=== PATIENT | male | born 1995 | race Caucasian/White ===

== ENCOUNTER 2018-11-30 12:46 | Emergency (ER) | payer OTHER ==
[2018-11-30] MEDS ORDERED: Sodium Chloride 0.9% 10 ML Syringe FLUSH PRN (12:53)
[2018-11-30] MEDS ORDERED: Sodium Chloride 0.9% 1,000 ML IV ONE (12:53)
[2018-11-30] MEDS ORDERED: Sodium Chloride 0.9% 2.5 ML Syringe FLUSH PRN (12:53)
[2018-11-30] MEDS ORDERED: Pantoprazole 40 MG Vial IVPUSH ONE (13:15)
[2018-11-30 13:29] LABS: CHLORIDE,CL 107 mmol/L (98-107); SODIUM,NA 143 mmol/L (136-148)
[2018-11-30] MEDS ORDERED: Water For Injection, Sterile 20 ML SDV INJECT SCH (13:30)
[2018-11-30] MEDS ORDERED: Iopamidol 755 MG/ML 500 ML Multipack Bottle IVPUSH STA (14:27)
--- NOTE | 2018-11-30 15:00 | CT ---
INDICATION: Abdominal pain TECHNIQUE: CT abdomen and pelvis acquired with [IV] contrast. 100 cc of IV contrast was used. COMPARISON: None available FINDINGS: Evaluation is somewhat limited due to patient motion. The visualized portions of the lung bases are clear. The liver, spleen, pancreas and adrenal glands are unremarkable. The gallbladder is nondistended. The kidneys enhance symmetrically without hydronephrosis. The bladder is minimally distended and unremarkable. There are no dilated loops of small bowel to suggest obstruction. The appendix is surgically absent.There is no intraperitoneal free air or fluid. The visualized osseous structures are unremarkable. IMPRESSION: Unremarkable contrast enhanced CT of the abdomen and pelvis. Please note that all CT scans at this facility use dose modulation, iterative reconstruction, and/or weight-based dosing when appropriate to reduce radiation dose to as low as reasonably achievable. Dictated by: Joy Ferguson MD @ 11/30/2018 14:59:46 (Electronically Signed)
[2018-11-30] MEDS ORDERED: Ondansetron 4 MG/2 ML SDV IVPUSH ONE (15:19)
--- NOTE | 2018-11-30 15:20 | EDM.PDOC ---
ED HPI GENERAL MEDICAL PROBLEM - General Chief Complaint: Abdominal Pain Stated Complaint: CHEST AND STOMACH PAIN Time Seen by Provider: 11/30/18 12:53 Source of Information: Reports: Patient History Limitations: Reports: No Limitations - History of Present Illness INITIAL COMMENTS - FREE TEXT/NARRATIVE: History of present illness: []Patient states he started having severe abdominal pain radiating up to his left chest today. 2 beers last night states he's been drinking more heavily this year than he has the past year . He has a history of stomach ulcers but was not aware that alcohol worsens symptoms. He denies vomiting blood, he is nauseated and states last week he had black stools. He denies passing any since. Review of systems: As per history of present illness and below otherwise all systems reviewed and negative. Past medical history: As per history of present illness and as reviewed below otherwise noncontributory. Surgical history: As per history of present illness and as reviewed below otherwise noncontributory. Social history: No reported history of drug or alcohol abuse. Family history: As per history of present illness and as reviewed below otherwise noncontributory. Physical exam: General: Well developed, well nourished in NAD HEENT: Atraumatic, normocephalic, pupils reactive, negative for conjunctival pallor or scleral icterus, mucous membranes moist, throat clear, neck supple, nontender, trachea midline. Lungs: Clear to auscultation, breath sounds equal bilaterally, chest nontender. Heart: S1S2, regular, negative for clicks, rubs, or JVD. Abdomen: NABS, Soft, nondistended, nontender. Negative for masses or hepatosplenomegaly. Negative for costovertebral tenderness. Pelvis: Stable nontender. Genitourinary: Deferred. Rectal: Deferred. Extremities: Atraumatic, negative for cords or calf pain. Neurovascular unremarkable. Neuro: Awake, alert, oriented. Cranial nerves II through XII unremarkable. Cerebellum unremarkable. Motor and sensory unremarkable throughout. Exam nonfocal. Skin:warm and dry Diagnostics: CBC, chemistry, lipase, H. pylori, habdomen and pelvis CT Therapeutics: Normal saline, Protonix and Zofran ED Course: Improved Impression: Acute gastritis Prescriptions: Zofran Plan: Take Prilosec twice a day for the next 2 weeks follow up with primary care doctor. Definitive disposition and diagnosis as appropriate pending reevaluation and review of above. Upper Abdomen Pain Score (Numeric/FACES): 10 - Related Data Allergies Allergy/AdvReac Type Severity Reaction Status Date / Time No Known Allergies Allergy Verified 11/30/18 12:52 Home Meds: Home Meds Ondansetron HCl [Zofran] 4 mg PO Q4HR #12 tablet 11/30/18 [Rx] Past Medical History - Past Health History Medical/Surgical History: Denies Medical/Surgical History - Past Surgical History GI Surgical History: Reports: Appendectomy Social & Family History - Family History Family Medical History: Noncontributory - Tobacco Use Smoking Status *Q: Current Every Day Smoker Years of Tobacco use: 4 Packs/Tins Daily: 1 - Recreational Drug Use Recreational Drug Use: No ED ROS GENERAL - Review of Systems Review Of Systems: ROS reveals no pertinent complaints other than HPI. ED EXAM, GI/ABD - Physical Exam Exam: See Below (History of present illness) Course - Vital Signs Last Recorded V/S: Last Vital Signs Temp 97.0 F 11/30/18 12:50 Pulse 86 11/30/18 15:40 Resp 22 H 11/30/18 12:50 BP 114/54 L 11/30/18 15:40 Pulse Ox 98 11/30/18 15:40 - Orders/Labs/Meds Orders: Active Orders 24 hr Category Date Time Status Sodium Chloride 0.9% [Saline Flush] Med 11/30/18 12:53 Active 10 ml FLUSH ASDIRECTED PRN Sodium Chloride 0.9% [Saline Flush] Med 11/30/18 12:53 Active 2.5 ml FLUSH ASDIRECTED PRN Water For Injection, Sterile [Sterile Water for Med 11/30/18 13:30 Active Injection] 40 ml INJECT STAT Saline Lock Insert [OM.PC] Stat Oth 11/30/18 12:53 Ordered Medication Orders Sodium Chloride (Saline Flush) 10 ml FLUSH ASDIRECTED PRN PRN Reason: Keep Vein Open Last Admin: 11/30/18 13:01 Dose: 10 ml Sodium Chloride (Saline Flush) 2.5 ml FLUSH ASDIRECTED PRN PRN Reason: Keep Vein Open Last Admin: 11/30/18 13:01 Dose: 2.5 ml Sterile Water (Sterile Water For Injection) 40 ml INJECT STAT APRIL Last Admin: 11/30/18 13:33 Dose: 40 ml Labs: Laboratory Tests 11/30/18 11/30/18 11/30/18 Range/Units 13:03 13:03 13:03 WBC 10.11 (4.0-11.0) K/uL RBC 4.98 (4.50-5.90) M/uL Hgb 14.6 (13.0-17.0) g/dL Hct 40.9 (38.0-50.0) % MCV 82.1 (80.0-98.0) fL MCH 29.3 (27.0-32.0) pg MCHC 35.7 (31.0-37.0) g/dL RDW Std Deviation 39.2 (28.0-62.0) fl RDW Coeff of Kyle 13 (11.0-15.0) % Plt Count 199 (150-400) K/uL MPV 9.00 (7.40-12.00) fL Neut % (Auto) 84.5 H (48.0-80.0) % Lymph % (Auto) 9.7 L (16.0-40.0) % Gila % (Auto) 5.2 (0.0-15.0) % Eos % (Auto) 0.3 (0.0-7.0) % Baso % (Auto) 0.3 (0.0-1.5) % Neut # (Auto) 8.5 H (1.4-5.7) K/uL Lymph # (Auto) 1.0 (0.6-2.4) K/uL Gila # (Auto) 0.5 (0.0-0.8) K/uL Eos # (Auto) 0.0 (0.0-0.7) K/uL Baso # (Auto) 0.0 (0.0-0.1) K/uL Nucleated RBC % 0.0 /100WBC Nucleated RBCs # 0 K/uL Sodium 143 (136-148) mmol/L Potassium 3.7 (3.5-5.1) mmol/L Chloride 107 (98-107) mmol/L Carbon Dioxide 26.8 (21.0-32.0) mmol/L BUN 15 (7.0-18.0) mg/dL Creatinine 0.8 (0.8-1.3) mg/dL Est Cr Clr Drug Dosing 145.86 mL/min Estimated GFR (MDRD) > 60.0 ml/min Glucose 92 (74-106) mg/dL Calcium 9.5 (8.5-10.1) mg/dL Total Bilirubin 0.8 (0.2-1.0) mg/dL AST 28 (15-37) IU/L ALT 26 (14-63) IU/L Alkaline Phosphatase 97 (46-116) U/L Total Protein 7.6 (6.4-8.2) g/dL Albumin 4.4 (3.4-5.0) g/dL Globulin 3.2 (2.6-4.0) g/dL Albumin/Globulin Ratio 1.4 (0.9-1.6) Lipase 72 L (73-393) U/L Urine Color Urine Appearance Urine pH (5.0-8.0) Ur Specific [place] (1.001-1.035) Urine Protein (NEGATIVE) mg/dL Urine Glucose (UA) (NEGATIVE) mg/dL Urine Ketones (NEGATIVE) mg/dL Urine Occult Blood (NEGATIVE) Urine Nitrite (NEGATIVE) Urine Bilirubin (NEGATIVE) Urine Urobilinogen (<2.0) EU/dL Ur Leukocyte Esterase (NEGATIVE) Urine RBC (0-2/HPF) Urine WBC (0-5/HPF) Ur Epithelial Cells (NONE-FEW) Urine Bacteria (NEGATIVE) Urine Mucus (NONE-MOD) H. pylori IgG Antibody NEGATIVE (NEG) 11/30/18 Range/Units 13:40 WBC (4.0-11.0) K/uL RBC (4.50-5.90) M/uL Hgb (13.0-17.0) g/dL Hct (38.0-50.0) % MCV (80.0-98.0) fL MCH (27.0-32.0) pg MCHC (31.0-37.0) g/dL RDW Std Deviation (28.0-62.0) fl RDW Coeff of Klye (11.0-15.0) % Plt Count (150-400) K/uL MPV (7.40-12.00) fL Neut % (Auto) (48.0-80.0) % Lymph % (Auto) (16.0-40.0) % Gila % (Auto) (0.0-15.0) % Eos % (Auto) (0.0-7.0) % Baso % (Auto) (0.0-1.5) % Neut # (Auto) (1.4-5.7) K/uL Lymph # (Auto) (0.6-2.4) K/uL Gila # (Auto) (0.0-0.8) K/uL Eos # (Auto) (0.0-0.7) K/uL Baso # (Auto) (0.0-0.1) K/uL Nucleated RBC % /100WBC Nucleated RBCs # K/uL Sodium (136-148) mmol/L Potassium (3.5-5.1) mmol/L Chloride (98-107) mmol/L Carbon Dioxide (21.0-32.0) mmol/L BUN (7.0-18.0) mg/dL Creatinine (0.8-1.3) mg/dL Est Cr Clr Drug Dosing mL/min Estimated GFR (MDRD) ml/min Glucose (74-106) mg/dL Calcium (8.5-10.1) mg/dL Total Bilirubin (0.2-1.0) mg/dL AST (15-37) IU/L ALT (14-63) IU/L Alkaline Phosphatase (46-116) U/L Total Protein (6.4-8.2) g/dL Albumin (3.4-5.0) g/dL Globulin (2.6-4.0) g/dL Albumin/Globulin Ratio (0.9-1.6) Lipase (73-393) U/L Urine Color YELLOW Urine Appearance CLEAR Urine pH 7.5 (5.0-8.0) Ur Specific [place] 1.015 (1.001-1.035) Urine Protein NEGATIVE (NEGATIVE) mg/dL Urine Glucose (UA) NEGATIVE (NEGATIVE) mg/dL Urine Ketones >=80 (NEGATIVE) mg/dL Urine Occult Blood NEGATIVE (NEGATIVE) Urine Nitrite NEGATIVE (NEGATIVE) Urine Bilirubin NEGATIVE (NEGATIVE) Urine Urobilinogen 0.2 (<2.0) EU/dL Ur Leukocyte Esterase NEGATIVE (NEGATIVE) Urine RBC NONE SEEN (0-2/HPF) Urine WBC 1-2 (0-5/HPF) Ur Epithelial Cells RARE (NONE-FEW) Urine Bacteria FEW (NEGATIVE) Urine Mucus MODERATE (NONE-MOD) H. pylori IgG Antibody (NEG) Meds: Medications Generic Name Dose Route Start Last Admin Trade Name Freq PRN Reason Stop Dose Admin Sodium Chloride 10 ml 11/30/18 12:53 11/30/18 13:01 Saline Flush FLUSH 10 ml ASDIRECTED PRN Administration Keep Vein Open Sodium Chloride 2.5 ml 11/30/18 12:53 11/30/18 13:01 Saline Flush FLUSH 2.5 ml ASDIRECTED PRN Administration Keep Vein Open Sterile Water 40 ml 11/30/18 13:30 11/30/18 13:33 Sterile Water For Injection INJECT 40 ml STAT APRIL Administration Discontinued Medications Generic Name Dose Route Start Last Admin Trade Name Freq PRN Reason Stop Dose Admin Sodium Chloride 1,000 mls @ 999 mls/hr 11/30/18 12:53 11/30/18 13:01 Normal Saline IV 11/30/18 13:53 999 mls/hr .Bolus ONE Administration Iopamidol 100 ml 11/30/18 14:27 11/30/18 14:28 Isovue Multipack-370 (76%) IVPUSH 11/30/18 14:28 100 ml ONETIME STA Administration Ondansetron HCl 4 mg 11/30/18 15:19 11/30/18 15:25 Zofran IVPUSH 11/30/18 15:20 4 mg ONETIME ONE Administration Pantoprazole Sodium 80 mg 11/30/18 13:15 11/30/18 13:33 Protonix Iv IVPUSH 11/30/18 13:16 80 mg .BOLUS ONE Administration Departure - Departure Time of Disposition: 15:16 Disposition: Home, Self-Care 01 Condition: Good Clinical Impression: Gastritis Qualifiers: Gastritis type: unspecified gastritis Chronicity: acute Gastritis bleeding: without bleeding Qualified Code(s): K29.00 - Acute gastritis without bleeding - Discharge Information *PRESCRIPTION DRUG MONITORING PROGRAM REVIEWED*: No *COPY OF PRESCRIPTION DRUG MONITORING REPORT IN PATIENT HILARIO: No Prescriptions: Ondansetron HCl [Zofran] 4 mg PO Q4HR #12 tablet Instructions: Gastritis, Adult, [id number] Forms: ED Department Discharge Additional Instructions: The following information is given to patients seen in the emergency department who are being discharged to home. This information is to outline your options for follow-up care. We provide all patients seen in our emergency department with a follow-up referral. The need for follow-up, as well as the timing and circumstances, are variable depending upon the specifics of your emergency department visit. If you don't have a primary care physician on staff, we will provide you with a referral. We always advise you to contact your personal physician following an emergency department visit to inform them of the circumstance of the visit and for follow-up with them and/or the need for any referrals to a consulting specialist. The emergency department will also refer you to a specialist when appropriate. This referral assures that you have the opportunity for follow-up care with a specialist. All of these measure are taken in an effort to provide you with optimal care, which includes your follow-up. Under all circumstances we always encourage you to contact your private physician who remains a resource for coordinating your care. When calling for follow-up care, please make the office aware that this follow-up is from your recent emergency room visit. If for any reason you are refused follow-up, please contact the [facility] Emergency Department at and asked to speak to the emergency department charge nurse. Do not drink any alcohol, ibuprofen or Aleve or aspirin. Take Prilosec twice a day for 2 weeks and follow-up with primary care. If any symptoms worsen or change. [facility] [address] [place] [id number] - My Orders Last 24 Hours: My Active Orders 11/30/18 12:53 Sodium Chloride 0.9% [Saline Flush] 10 ml FLUSH ASDIRECTED PRN Sodium Chloride 0.9% [Saline Flush] 2.5 ml FLUSH ASDIRECTED PRN Saline Lock Insert [OM.PC] Stat 11/30/18 13:30 Water For Injection, Sterile [Sterile Water for Injection] 40 ml INJECT STAT - Assessment/Plan Last 24 Hours: My Active Orders 11/30/18 12:53 Sodium Chloride 0.9% [Saline Flush] 10 ml FLUSH ASDIRECTED PRN Sodium Chloride 0.9% [Saline Flush] 2.5 ml FLUSH ASDIRECTED PRN Saline Lock Insert [OM.PC] Stat 11/30/18 13:30 Water For Injection, Sterile [Sterile Water for Injection] 40 ml INJECT STAT
== END 2018-11-30 15:40 | disposition home or self-care (01) ==
LOC: MW.ED 12:46
DX: K29.00 Acute gastritis without bleeding (principal); F17.210 Nicotine dependence, cigarettes, uncomplicated
CPT/HCPCS: 36415; 74177; 80053; 81001; 83690; 85025; 86677; 93005; 96361; 96374; 96375; 99284; C9113; J2405; J7040; Q9967; 99283

== ENCOUNTER 2019-02-11 09:36 | Day surgery (SDC) | payer OTHER ==
[~2019-02-11 09:36] MED LIST: Lactated Ringers 1,000 ML IV SCH; Sodium Chloride 0.9% 10 ML SDV IV PRN; Sodium Chloride 0.9% 10 ML Syringe FLUSH PRN; Sodium Chloride 0.9% 2.5 ML Syringe FLUSH PRN
[2019-02-11] MEDS ORDERED: Propofol 200 MG/20 ML SDV ONE ×2 (10:19→11:52)
[2019-02-11] MEDS ORDERED: Midazolam 1 MG/ML 2 ML SDV ONE (10:19)
[2019-02-11] MEDS ORDERED: Lidocaine 2% 5 ML SDV ONE (10:19)
[2019-02-11] MEDS ORDERED: fentaNYL 100 MCG/2 ML SDV ONE (10:19)
--- NOTE | 2019-02-11 11:40 | PCM.PREANE ---
Preanesthetic Assessment - Anesthesia/Transfusion/Family Hx Anesthesia History: Prior Anesthesia Without Reaction (high tolerance) Other Type of Anesthesia Reaction Comment: "when having wisdom teeth extracted the anesthesia caused anxiety" Transfusion History: No Prior Transfusion(s) - Review of Systems General: No Symptoms Pulmonary: No Symptoms Cardiovascular: No Symptoms Gastrointestinal: No Symptoms Neurological: No Symptoms - Physical Assessment O2 Sat by Pulse Oximetry: 98 Respiratory Rate: 14 Vital Signs: Last Vital Signs Temp 36.8 C 02/11/19 10:15 Pulse 53 L 02/11/19 10:15 Resp 14 02/11/19 10:15 BP 116/64 02/11/19 10:15 Pulse Ox 98 02/11/19 10:15 Height: 1.83 m Weight: 71.214 kg ASA Class: 2 Mental Status: Alert & Oriented x3 Airway Class: Mallampati = 1 Dentition: Reports: Normal Dentition Thyro-Mental Finger Breadths: 3 Mouth Opening Finger Breadths: 3 ROM/Head Extension: Full Lungs: Clear to Auscultation, Normal Respiratory Effort Cardiovascular: Regular Rate, Regular Rhythm - Allergies Allergies/Adverse Reactions: Allergies Allergy/AdvReac Type Severity Reaction Status Date / Time lactose Allergy Stomach Verified 02/06/19 14:15 Upset - Acknowledgements Anesthesia Type Planned: MAC Pt an Appropriate Candidate for the Planned Anesthesia: Yes Alternatives and Risks of Anesthesia Discussed w Pt/Guardian: Yes Pt/Guardian Understands and Agrees with Anesthesia Plan: Yes PreAnesthesia Questionnaire - Past Health History Medical/Surgical History: Denies Medical/Surgical History HEENT History: Reports: None Cardiovascular History: Reports: None Respiratory History: Reports: Asthma, Other (See Below) (allergic rhinitis) Other Respiratory History: states he rarely uses his inhaler Gastrointestinal History: Reports: Gastritis, GERD Genitourinary History: Reports: None Musculoskeletal History: Reports: Fracture, Osteoarthritis, Other (See Below) Other Musculoskeletal History: hx fx hand Neurological History: Reports: Migraines Psychiatric History: Reports: Anxiety, Depression Endocrine/Metabolic History: Reports: None Hematologic History: Reports: None Immunologic History: Reports: None Oncologic (Cancer) History: Reports: None Dermatologic History: Reports: None - Past Surgical History Head Surgeries/Procedures: Reports: None HEENT Surgical History: Reports: Oral Surgery Other HEENT Surgeries/Procedures: wisdom teeth extraction Cardiovascular Surgical History: Reports: None Respiratory Surgical History: Reports: None GI Surgical History: Reports: Appendectomy Male Surgical History: Reports: None Endocrine Surgical History: Reports: None Neurological Surgical History: Reports: None Musculoskeletal Surgical History: Reports: None Oncologic Surgical History: Reports: None Dermatological Surgical History: Reports: None - SUBSTANCE USE Smoking Status *Q: Current Every Day Smoker Tobacco Use Within Last Twelve Months: Cigarettes (for 4 years) Days Per Week of Alcohol Use: 0 (occasional etoh) Recreational Drug Use History: No - HOME MEDS Home Medications: Home Meds Albuterol Sulfate [Albuterol Sulfate Hfa] 1 - 2 puff INH ASDIRECTED PRN [History] Omeprazole 20 tab PO ASDIRECTED 02/06/19 [History] PARoxetine [Paxil] 10 mg PO DAILY 02/07/19 [History] - CURRENT (IN HOUSE) MEDS Current Meds: Current Medications Lactated Ringer's (Ringers, Lactated) 1,000 mls @ 125 mls/hr IV ASDIRECTED APRIL Last Admin: 02/11/19 10:06 Dose: 125 mls/hr Lactated Ringer's (Ringers, Lactated) 1,000 mls @ 125 mls/hr IV ASDIRECTED APRIL Sodium Chloride (Saline Flush) 10 ml FLUSH ASDIRECTED PRN PRN Reason: Keep Vein Open Sodium Chloride (Saline Flush) 2.5 ml FLUSH ASDIRECTED PRN PRN Reason: Keep Vein Open Sodium Chloride (Saline Flush) 10 ml FLUSH ASDIRECTED PRN PRN Reason: Keep Vein Open Sodium Chloride (Saline Flush) 2.5 ml FLUSH ASDIRECTED PRN PRN Reason: Keep Vein Open Sodium Chloride (Normal Saline) 10 ml IV ASDIRECTED PRN PRN Reason: IV Use Sodium Chloride (Saline Flush) 10 ml FLUSH ASDIRECTED PRN PRN Reason: Keep Vein Open Sodium Chloride (Saline Flush) 2.5 ml FLUSH ASDIRECTED PRN PRN Reason: Keep Vein Open Sodium Chloride (Normal Saline) 10 ml IV ASDIRECTED PRN PRN Reason: IV Use Discontinued Medications Fentanyl (Sublimaze) Confirm Administered Dose 100 mcg .ROUTE .STK-MED ONE Stop: 02/11/19 10:20 Lidocaine (Xylocaine-Mpf 2%) Confirm Administered Dose 5 ml .ROUTE .STK-MED ONE Stop: 02/11/19 10:20 Midazolam HCl (Versed 1 Mg/Ml) Confirm Administered Dose 2 mg .ROUTE .STK-MED ONE Stop: 02/11/19 10:20 Propofol (Diprivan 20 Ml) Confirm Administered Dose 200 mg .ROUTE .STK-MED ONE Stop: 02/11/19 10:20
[2019-02-11] MEDS ORDERED: Glycopyrrolate 0.2 MG/ML SDV ONE (12:02)
--- NOTE | 2019-02-11 12:10 | PCM.OPNOTE ---
- General Post-Op/Procedure Note Date of Surgery/Procedure: 02/11/19 Operative Procedure(s): diagnostic EGD and colonoscopy Findings: normal EGD and normal colon Pre Op Diagnosis: abdominal pain and chronic diarrhea Post-Op Diagnosis: normal EGD and normal colon Anesthesia Technique: [facility] [place] Surgeon: Dorothy Thornton Pathology: stomach biopsies EBL in mLs: 0 Condition: Good
--- NOTE | 2019-02-11 12:49 | PCM.POSTAN ---
POST ANESTHESIA ASSESSMENT - MENTAL STATUS Mental Status: Alert, Oriented - RESPIRATORY Respiratory Status: Respiratory Rate WNL, Airway Patent, O2 Saturation Stable - CARDIOVASCULAR CV Status: Pulse Rate WNL, Blood Pressure Stable - GASTROINTESTINAL GI Status: No Symptoms - POST OP HYDRATION Hydration Status: Adequate & Stable - OBSERVATIONS Free Text/Narrative:: The patient tolerated the procedure well. There were no apparent anesthetic complications at this time.
--- NOTE | 2019-02-11 13:09 | PCM48HPAN ---
Post Anesthesia Note - EVALUATION WITHIN 48HRS OF ANESTHETIC Vital Signs in Normal Range: Yes Patient Participated in Evaluation: Yes Respiratory Function Stable: Yes Airway Patent: Yes Cardiovascular Function Stable: Yes Hydration Status Stable: Yes Pain Control Satisfactory: Yes Nausea and Vomiting Control Satisfactory: Yes Mental Status Recovered: Yes Resp Rate: 16 - COMMENTS/OBSERVATIONS Free Text/Narrative:: The patient has no complications at this time. There were no apparent anesthetic complications at this time. Discharge to home per criteria.
--- NOTE | 2019-02-11 18:39 | OR ---
SURGEON: DOROTHY THORNTON MD DATE OF PROCEDURE: 02/11/2019 PREOPERATIVE DIAGNOSIS: Abdominal pain, chronic diarrhea. POSTOPERATIVE DIAGNOSIS: Abdominal pain, chronic diarrhea. PROCEDURE PERFORMED: Diagnostic esophagogastroduodenoscopy and colonoscopy. ENDOSCOPIST: Dorothy Thornton MD. ANESTHESIA: MAC. INSTRUMENT USED: Olympus endoscope and colonoscope. EXTENT OF EXAM: To the second portion of duodenum, to the cecum. PREPARATION: Good. LIMITATIONS: None. INDICATION FOR EXAMINATION: The patient is a 23-year-old male who presents with abdominal pain as well as chronic diarrhea. The patient and I discussed the need for diagnostic EGD and colonoscopy. I explained the procedure, expected perioperative course, and risks including bleeding, infection, or damage to surrounding structures including perforation. The patient verbalized understanding and wishes to proceed. PROCEDURE IN DETAIL: The patient is brought into the endoscopy suite and placed in a left lateral decubitus position. A time-out was completed verifying the patient's name, age, date of , allergies, and procedure to be performed. Monitored anesthesia care was induced and continuous oxygen was provided via nasal cannula throughout the procedure. A bite-block was placed in the patient's mouth. I attempted to place the scope into the patient's mouth, however, he became combative and pulled the scope out of his posterior oropharynx. The anesthesiologist gave some more sedation and the patient was then calmed down. He was placed in a beach chair position then to allow better access to his posterior oropharynx. Endoscope was then placed into his mouth and advanced under direct visualization without difficulty to the second portion of the duodenum. This appeared normal and a photograph was taken. The scope was straightened out and fully withdrawn while examining the color, texture, anatomy, and integrity of the mucosa of the upper GI tract. The duodenum was free of pathology. The scope was brought into the stomach and a photograph was taken of the Z-line as well as pylorus. Both appeared normal. There was no evidence of gross inflammation or ulceration within the stomach. Biopsies were taken of the gastric antrum, body, and fundus, and sent for histologic review and H. pylori testing. The scope was brought into the distal esophagus and a photograph was taken of the distal esophagus. This appeared normal. The esophageal mucosa was free of pathology. The scope was removed and this portion of the procedure terminated. A digital rectal exam was performed which was normal. A well lubricated colonoscope was inserted into the rectum and advanced under direct visualization to the level of the cecum. The cecum was identified by both visual and anatomic landmarks. A photograph was taken of the cecal cap as well as with the scope retroflexed within the cecum. Scope was then straightened out and fully withdrawn while examining the color, texture, anatomy, and integrity of the mucosa from the cecum to the anal canal. The findings were consistent with normal colonic mucosa. The scope was then brought into the rectum and retroflexed to allow visualization of the anal canal opening. This appeared normal and a photograph was taken. The scope was then straightened out and fully withdrawn. The cecum to anus time was 6 minutes. The patient tolerated the procedure well and was taken to PACU in stable condition. ENDOSCOPIC DIAGNOSIS: Normal esophagogastroduodenoscopy and colonoscopy. RECOMMENDATIONS: Follow up in clinic in 2 weeks. MARYCRUZ RAMIREZ /[id number]
== END 2019-02-11 13:10 | disposition home or self-care (01) ==
LOC: MW.SDS 09:36
PROVIDERS: ATTEND Surgery
DX: K59.09 Other constipation (principal); K31.89 Other diseases of stomach and duodenum; R10.12 Left upper quadrant pain; K92.1 Melena; K52.9 Noninfective gastroenteritis and colitis, unspecified; K21.9 Gastro-esophageal reflux disease without esophagitis; J45.909 Unspecified asthma, uncomplicated; F41.9 Anxiety disorder, unspecified; F17.210 Nicotine dependence, cigarettes, uncomplicated; Z87.19 Personal history of other diseases of the digestive system; Z79.899 Other long term (current) drug therapy; Z91.09 Other allergy status, other than to drugs and biological substances
CPT/HCPCS: 43239; 45378; 88305; 88312; J2001; J2250; J2704; J3010; J3490; J7120

== ENCOUNTER 2019-05-26 11:46 | Emergency (ER) | payer OTHER ==
[~2019-05-26 11:46] MED LIST changes: +Albuterol/Ipratropium 3.0-0.5 MG/3 ML Neb Soln NEB ONE; -Lactated Ringers 1,000 ML IV SCH; -Sodium Chloride 0.9% 10 ML SDV IV PRN; -Sodium Chloride 0.9% 10 ML Syringe FLUSH PRN; -Sodium Chloride 0.9% 2.5 ML Syringe FLUSH PRN
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
--- NOTE | 2019-05-26 13:30 | CR ---
INDICATION: Shortness of breath. Chest pain. COMPARISON: none TECHNIQUE: Two view chest. FINDINGS: The lungs are clear. There is no evidence pneumothorax. The heart, mediastinum and pulmonary vessels are of normal size. There is no evidence of pleural fluid. IMPRESSION: Negative chest. Dictated by Eamon Flood MD @ May 26 2019 1:28PM Signed by Dr. Eamon Flood @ May 26 2019 1:29PM
== END 2019-05-26 12:35 | disposition home or self-care (01) ==
LOC: MW.ED 11:46
DX: R06.02 Shortness of breath (principal); K21.9 Gastro-esophageal reflux disease without esophagitis; M19.90 Unspecified osteoarthritis, unspecified site; Z79.899 Other long term (current) drug therapy; Z98.890 Other specified postprocedural states
CPT/HCPCS: 71045; 71045-26; 94640; 99283; 99284-25; J7620-GY

== ENCOUNTER 2019-08-20 21:16 | Emergency (ER) | payer SELFPAY ==
[2019-08-20] MEDS ORDERED: Tetracaine HCl/PF 0.5% 4 ML Bottle EYEBOTH ONE (21:45)
--- NOTE | 2019-08-20 21:47 | EDM.PDOC ---
ED HPI GENERAL MEDICAL PROBLEM - General Chief Complaint: Eye Problems Stated Complaint: EYE PAIN Time Seen by Provider: 08/20/19 21:40 Source of Information: Reports: Patient History Limitations: Reports: No Limitations - History of Present Illness INITIAL COMMENTS - FREE TEXT/NARRATIVE: HISTORY AND PHYSICAL: History of present illness: Patient is a 24-year-old male presents to the ED today with concern of both of his eyes hurting. Patient states his left is worse than his right and he is having some blurry vision of his eyes. 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 Patient states he is unsure if something got into his eye but this is when he started noticing the symptoms. Patient states he does not wear contacts or glasses. Patient denies any other symptoms or concerns. Patient denies fever, chills, chest pain, shortness of breath, or cough. Denies headache, neck stiff ness, change in vision, syncope, or near syncope. Denies nausea, vomiting, abdominal pain, diarrhea, constipation, or dysuria. Has not noted any blood in urine or stool. Patient has been eating and drinking appropriately. Review of systems: As per history of present illness and below otherwise all systems reviewed and negative. Past medical history: As per history of present illness and as reviewed below otherwise noncontributory. Surgical history: As per history of present illness and as reviewed below otherwise noncontributory. Social history: See social history for further information Family history: As per history of present illness and as reviewed below otherwise noncontributory. Physical exam: General: Patient is alert, oriented, and in no acute distress. Patient sitting comfortably on exam table. HEENT: Atraumatic, normocephalic, pupils equal and reactive bilaterally, negative for conjunctival pallor or scleral icterus, mucous membranes moist, TMs normal bilaterally, throat clear, neck supple, nontender, trachea midline. No drooling or trismus noted. No meningeal signs. No hot potato voice noted. Visual acuity is intact. EOMs intact. Fluroscene eye stain shows no corneal abrasions, lids were everted without foreign body. Negative erythema of the eyes. No haziness to the cornea bilaterally. Lungs: Clear to auscultation, breath sounds equal bilaterally, chest nontender. Heart: S1S2, regular rate and rhythm without overt murmur Abdomen: Soft, nondistended, nontender. Negative for masses or hepatosplenomegaly. Negative for costovertebral tenderness. Pelvis: Stable nontender. Genitourinary: Deferred. Rectal: Deferred. Skin: Intact, warm, dry. No lesions or rashes noted. Extremities: Atraumatic, negative for cords or calf pain. Neurovascular unremarkable. Neuro: Awake, alert, oriented. Cranial nerves II through XII unremarkable. Cerebellum unremarkable. Motor and sensory unremarkable throughout. Exam nonfocal. Notes: Dr. Clarke verbally involved in patient care. Discussed the importance for follow-up with the flight dynamicist. Voices understanding and is agreeable to plan of care. Denies any further questions or concerns at this time. Diagnostics: Fluorescein wolf lamp Therapeutics: Tetracaine ophthalmic Prescription: Erythromycin ophthalmic Impression: Bilateral eye pain Plan: 1. Apply medication as prescribed. You can also alternate ibuprofen and Tylenol as directed for pain and discomfort. 2. Follow up with the flight dynamicist as discussed. The number has been provided above for you to call and set up an appointment. 3. Return to the ED as needed and as discussed. Definitive disposition and diagnosis as appropriate pending reevaluation and review of above. bilateral eyes Pain Score (Numeric/FACES): 10 - Related Data Allergies Allergy/AdvReac Type Severity Reaction Status Date / Time lactose Allergy Stomach Verified 08/20/19 21:45 Upset Home Meds: Home Meds . [No Known Home Meds] 05/26/19 [History] Past Medical History - Past Health History Medical/Surgical History: Denies Medical/Surgical History HEENT History: Reports: None Cardiovascular History: Reports: None Respiratory History: Reports: Asthma, Other (See Below) Other Respiratory History: states he rarely uses his inhaler Gastrointestinal History: Reports: Gastritis, GERD Genitourinary History: Reports: None Musculoskeletal History: Reports: Fracture, Osteoarthritis, Other (See Below) Other Musculoskeletal History: hx fx hand Neurological History: Reports: Migraines Psychiatric History: Reports: Anxiety, Depression Endocrine/Metabolic History: Reports: None Hematologic History: Reports: None Immunologic History: Reports: None Oncologic (Cancer) History: Reports: None Dermatologic History: Reports: None - Infectious Disease History Infectious Disease History: Reports: Chicken Pox - Past Surgical History Head Surgeries/Procedures: Reports: None HEENT Surgical History: Reports: Oral Surgery Other HEENT Surgeries/Procedures: wisdom teeth extraction Cardiovascular Surgical History: Reports: None Respiratory Surgical History: Reports: None GI Surgical History: Reports: Appendectomy Male Surgical History: Reports: None Endocrine Surgical History: Reports: None Neurological Surgical History: Reports: None Musculoskeletal Surgical History: Reports: None Oncologic Surgical History: Reports: None Dermatological Surgical History: Reports: None Social & Family History - Family History Family Medical History: Noncontributory - Caffeine Use Caffeine Use: Reports: None ED ROS GENERAL - Review of Systems Review Of Systems: ROS reveals no pertinent complaints other than HPI. ED EXAM GENERAL W FULL EYE - Physical Exam Exam: See Below (See dictation) Course - Vital Signs Last Recorded V/S: Last Vital Signs Temp 97.6 F 08/20/19 21:32 Pulse 57 L 08/20/19 21:32 Resp 16 08/20/19 21:32 BP 126/71 08/20/19 21:32 Pulse Ox 97 08/20/19 21:32 - Orders/Labs/Meds Meds: Medications Discontinued Medications Generic Name Dose Route Start Last Admin Trade Name Jamal PRN Reason Stop Dose Admin Tetracaine HCl 1 ml 08/20/19 21:45 Tetracaine 0.5% Steri-Unit Laura EYEBOTH 08/20/19 21:46 ASDIRECTED ONE Departure - Departure Time of Disposition: 22:08 Disposition: Home, Self-Care 01 Clinical Impression: Eye pain Qualifiers: Laterality: bilateral Qualified Code(s): H57.13 - Ocular pain, bilateral - Discharge Information Referrals: PCP,None [Primary Care Provider] - Forms: ED Department Discharge Additional Instructions: The following information is given to patients seen in the emergency department who are being discharged to home. This information is to outline your options for follow-up care. We provide all patients seen in our emergency department with a follow-up referral. The need for follow-up, as well as the timing and circumstances, are variable depending upon the specifics of your emergency department visit. If you don't have a primary care physician on staff, we will provide you with a referral. We always advise you to contact your personal physician following an emergency department visit to inform them of the circumstance of the visit and for follow-up with them and/or the need for any referrals to a consulting specialist. The emergency department will also refer you to a specialist when appropriate. This referral assures that you have the opportunity for follow-up care with a specialist. All of these measure are taken in an effort to provide you with optimal care, which includes your follow-up. Under all circumstances we always encourage you to contact your private physician who remains a resource for coordinating your care. When calling for follow-up care, please make the office aware that this follow-up is from your recent emergency room visit. If for any reason you are refused follow-up, please contact the [facility] Emergency Department at and asked to speak to the emergency department charge nurse. [facility] [address] [place] [id number] [facility], Ophthalmology [address] [place] [address] 1. Apply medication as prescribed. You can also alternate ibuprofen and Tylenol as directed for pain and discomfort. 2. Follow up with the flight dynamicist as discussed. The number has been provided above for you to call and set up an appointment. 3. Return to the ED as needed and as discussed.
== END 2019-08-20 22:30 | disposition home or self-care (01) ==
LOC: MW.ED 21:16
DX: H57.13 Ocular pain, bilateral (principal); J45.909 Unspecified asthma, uncomplicated; Z91.011 Allergy to milk products
CPT/HCPCS: 99283

== ENCOUNTER 2019-09-24 20:48 | Emergency (ER) | payer BC ==
[2019-09-24] MEDS ORDERED: Sodium Chloride 0.9% 10 ML Syringe FLUSH PRN (21:15)
[2019-09-24] MEDS ORDERED: Ketorolac 30 MG/ML SDV IVPUSH ONE (21:15)
[2019-09-24] MEDS ORDERED: Pantoprazole 80 MG in Sodium Chloride 0.9% 20 ML IVPUSH ONE (21:15)
[2019-09-24] MEDS ORDERED: Sodium Chloride 0.9% 1,000 ML IV ONE (21:15)
[2019-09-24] MEDS ORDERED: Ondansetron 4 MG/2 ML SDV IVPUSH ONE (21:15)
[2019-09-24] MEDS ORDERED: Sodium Chloride 0.9% 2.5 ML Syringe FLUSH PRN (21:15)
--- NOTE | 2019-09-24 21:18 | EDM.PDOC ---
ED HPI GENERAL MEDICAL PROBLEM - General Stated Complaint: VOMITTING AND DIZZY Time Seen by Provider: 09/24/19 21:08 - History of Present Illness INITIAL COMMENTS - FREE TEXT/NARRATIVE: HISTORY AND PHYSICAL: History of present illness: The patient is a 24-year-old male with no past medical history who presents with a one-month history of lightheadedness and generalized weakness intermittent vomiting intermittent diarrhea coughing malaise and bodyaches. The patient says that today he has been having more vomiting and that he always has loose stools and they have not been more frequent recently but have been in the past. Is not documented a fever but has had a cough. He is a smoker but denies drug use. He says he has some upper abdominal pain that started after the vomiting but it is not severe or consistent. He says he has diffuse body aches and slight frontal headache. He did not get his influenza shot this year and has not seen a provider over the last one month for these multiple symptoms. He is not falling passing out or blacking out and has no sore throat or runny nose or sinus congestion. The patient told triage that he felt dizzy but when I clarify it is more lightheadedness but he has not passed out or blacked out. Review of systems: As per history of present illness and below otherwise all systems reviewed and negative. Past medical history: As per history of present illness and as reviewed below otherwise noncontributory. Surgical history: As per history of present illness and as reviewed below otherwise noncontributory. Social history: No reported history of drug or alcohol abuse. Family history: As per history of present illness and as reviewed below otherwise noncontributory. Physical exam: General: Well-developed well-nourished man who is nontoxic and vital signs are noted by me HEENT: Atraumatic, normocephalic, pupils reactive, negative for conjunctival pallor or scleral icterus, mucous membranes moist, throat clear, neck supple, nontender, trachea midline. No cervical adenopathy or nuchal rigidity Lungs: Clear to auscultation, breath sounds equal bilaterally, chest nontender. Heart: S1S2, regular rate and rhythm no overt murmurs Abdomen: Soft, nondistended, nontender. Negative for masses or hepatosplenomegaly. Negative for costovertebral tenderness. Pelvis: Stable nontender. Genitourinary: Deferred. Rectal: Deferred. Extremities: Atraumatic, negative for cords or calf pain. Neurovascular unremarkable. Neuro: Awake, alert, oriented. Cranial nerves II through XII unremarkable. Cerebellum unremarkable. Motor and sensory unremarkable throughout. Exam nonfocal. Diagnostics: CBC CMP UA with reflex magnesium level influenza chest x-ray Therapeutics: IV fluids Zofran Protonix Toradol Impression: Viral illness/URI with body aches and malaise subacute, vomiting stable, lightheadedness subacute Definitive disposition and diagnosis as appropriate pending reevaluation and review of above. Head Pain Score (Numeric/FACES): 7 - Related Data Allergies Allergy/AdvReac Type Severity Reaction Status Date / Time lactose Allergy Stomach Verified 09/24/19 21:17 Upset Home Meds: Home Meds . [No Known Home Meds] 05/26/19 [History] Past Medical History - Past Health History Medical/Surgical History: Denies Medical/Surgical History HEENT History: Reports: None Cardiovascular History: Reports: None Respiratory History: Reports: Asthma, Other (See Below) Other Respiratory History: states he rarely uses his inhaler Gastrointestinal History: Reports: Gastritis, GERD Genitourinary History: Reports: None Musculoskeletal History: Reports: Fracture, Osteoarthritis, Other (See Below) Other Musculoskeletal History: hx fx hand Neurological History: Reports: Migraines Psychiatric History: Reports: Anxiety, Depression Endocrine/Metabolic History: Reports: None Hematologic History: Reports: None Immunologic History: Reports: None Oncologic (Cancer) History: Reports: None Dermatologic History: Reports: None - Infectious Disease History Infectious Disease History: Reports: Chicken Pox - Past Surgical History Head Surgeries/Procedures: Reports: None HEENT Surgical History: Reports: Oral Surgery Other HEENT Surgeries/Procedures: wisdom teeth extraction Cardiovascular Surgical History: Reports: None Respiratory Surgical History: Reports: None GI Surgical History: Reports: Appendectomy Male Surgical History: Reports: None Endocrine Surgical History: Reports: None Neurological Surgical History: Reports: None Musculoskeletal Surgical History: Reports: None Oncologic Surgical History: Reports: None Dermatological Surgical History: Reports: None Social & Family History - Family History Family Medical History: Noncontributory - Caffeine Use Caffeine Use: Reports: None ED ROS GENERAL - Review of Systems Review Of Systems: Comprehensive ROS is negative, except as noted in HPI. ED EXAM, GENERAL - Physical Exam Exam: See Below (See dictation) Course - Vital Signs Last Recorded V/S: Last Vital Signs Temp 36.3 C 09/24/19 21:17 Pulse 58 L 09/24/19 21:17 Resp 16 09/24/19 21:17 BP 112/75 09/24/19 21:17 Pulse Ox 99 09/24/19 21:17 - Orders/Labs/Meds Orders: Active Orders 24 hr Category Date Time Status Sodium Chloride 0.9% [Saline Flush] Med 09/24/19 21:15 Active 10 ml FLUSH ASDIRECTED PRN Sodium Chloride 0.9% [Saline Flush] Med 09/24/19 21:15 Active 2.5 ml FLUSH ASDIRECTED PRN Saline Lock Insert [OM.PC] Stat Oth 09/24/19 21:14 Ordered Medication Orders Sodium Chloride (Saline Flush) 10 ml FLUSH ASDIRECTED PRN PRN Reason: Keep Vein Open Sodium Chloride (Saline Flush) 2.5 ml FLUSH ASDIRECTED PRN PRN Reason: Keep Vein Open Labs: Laboratory Tests 09/24/19 09/24/19 09/24/19 Range/Units 21:23 21:39 21:39 WBC 5.21 (4.0-11.0) K/uL RBC 4.66 (4.50-5.90) M/uL Hgb 13.6 (13.0-17.0) g/dL Hct 38.0 (38.0-50.0) % MCV 81.5 (80.0-98.0) fL MCH 29.2 (27.0-32.0) pg MCHC 35.8 (31.0-37.0) g/dL RDW Std Deviation 37.4 (28.0-62.0) fl RDW Coeff of Kyle 13 (11.0-15.0) % Plt Count 183 (150-400) K/uL MPV 9.20 (7.40-12.00) fL Neut % (Auto) 40.5 L (48.0-80.0) % Lymph % (Auto) 46.6 H (16.0-40.0) % [place] % (Auto) 10.2 (0.0-15.0) % Eos % (Auto) 2.1 (0.0-7.0) % Baso % (Auto) 0.6 (0.0-1.5) % Neut # (Auto) 2.1 (1.4-5.7) K/uL Lymph # (Auto) 2.4 (0.6-2.4) K/uL [place] # (Auto) 0.5 (0.0-0.8) K/uL Eos # (Auto) 0.1 (0.0-0.7) K/uL Baso # (Auto) 0.0 (0.0-0.1) K/uL Nucleated RBC % 0.0 /100WBC Nucleated RBCs # 0 K/uL Sodium 142 (136-148) mmol/L Potassium 3.7 (3.5-5.1) mmol/L Chloride 105 (98-107) mmol/L Carbon Dioxide 29.5 (21.0-32.0) mmol/L BUN 13 (7.0-18.0) mg/dL Creatinine 0.8 (0.8-1.3) mg/dL Est Cr Clr Drug Dosing 152.34 mL/min Estimated GFR (MDRD) > 60.0 ml/min Glucose 89 (74-106) mg/dL Calcium 9.4 (8.5-10.1) mg/dL Magnesium 2.1 (1.8-2.4) mg/dL Total Bilirubin 0.4 (0.2-1.0) mg/dL AST 21 (15-37) IU/L ALT 33 (14-63) IU/L Alkaline Phosphatase 69 (46-116) U/L Total Protein 7.3 (6.4-8.2) g/dL Albumin 4.3 (3.4-5.0) g/dL Globulin 3.0 (2.6-4.0) g/dL Albumin/Globulin Ratio 1.4 (0.9-1.6) Urine Color YELLOW Urine Appearance CLEAR Urine pH 6.5 (5.0-8.0) Ur Specific [place] 1.015 (1.001-1.035) Urine Protein NEGATIVE (NEGATIVE) mg/dL Urine Glucose (UA) NEGATIVE (NEGATIVE) mg/dL Urine Ketones NEGATIVE (NEGATIVE) mg/dL Urine Occult Blood NEGATIVE (NEGATIVE) Urine Nitrite NEGATIVE (NEGATIVE) Urine Bilirubin NEGATIVE (NEGATIVE) Urine Urobilinogen 0.2 (<2.0) EU/dL Ur Leukocyte Esterase NEGATIVE (NEGATIVE) Meds: Medications Generic Name Dose Route Start Last Admin Trade Name Jamal PRN Reason Stop Dose Admin Sodium Chloride 10 ml 09/24/19 21:15 Saline Flush FLUSH ASDIRECTED PRN Keep Vein Open Sodium Chloride 2.5 ml 09/24/19 21:15 Saline Flush FLUSH ASDIRECTED PRN Keep Vein Open Discontinued Medications Generic Name Dose Route Start Last Admin Trade Name Jamal PRN Reason Stop Dose Admin Pantoprazole Sodium 80 mg/ 20 mls @ 420 mls/hr 09/24/19 21:15 09/24/19 21:38 Sodium Chloride IVPUSH 09/24/19 21:17 420 mls/hr ONETIME ONE Administration Sodium Chloride 1,000 mls @ 999 mls/hr 09/24/19 21:15 09/24/19 21:38 Normal Saline IV 09/24/19 22:15 999 mls/hr STAT ONE Administration Ketorolac Tromethamine 30 mg 09/24/19 21:15 09/24/19 21:46 Toradol IVPUSH 09/24/19 21:16 30 mg ONETIME ONE Administration Ondansetron HCl 4 mg 09/24/19 21:15 09/24/19 21:43 Zofran IVPUSH 09/24/19 21:16 4 mg ONETIME ONE Administration Departure - Departure Time of Disposition: 22:31 Disposition: Home, Self-Care 01 Condition: Good Clinical Impression: Generalized body aches, Viral illness, Lightheadedness Vomiting Qualifiers: Vomiting type: unspecified Vomiting Intractability: non-intractable Nausea presence: with nausea Qualified Code(s): R11.2 - Nausea with vomiting, unspecified - Discharge Information Referrals: PCP,None [Primary Care Provider] - Additional Instructions: The following information is given to patients seen in the emergency department who are being discharged to home. This information is to outline your options for follow-up care. We provide all patients seen in our emergency department with a follow-up referral. The need for follow-up, as well as the timing and circumstances, are variable depending upon the specifics of your emergency department visit. If you don't have a primary care physician on staff, we will provide you with a referral. We always advise you to contact your personal physician following an emergency department visit to inform them of the circumstance of the visit and for follow-up with them and/or the need for any referrals to a consulting specialist. The emergency department will also refer you to a specialist when appropriate. This referral assures that you have the opportunity for followup care with a specialist. All of these measure are taken in an effort to provide you with optimal care, which includes your followup. Under all circumstances we always encourage you to contact your private physician who remains a resource for coordinating your care. When calling for followup care, please make the office aware that this follow-up is from your recent emergency room visit. If for any reason you are refused follow-up, please contact the [facility] emergency department at and ask to speak to the emergency department charge nurse. [facility] Primary care- Internal Medicine and Family [facility] [address] Please connect with one of our providers in the clinic for reevaluation and further care of the symptoms as they've been ongoing for the last one month. Her testing results here are within normal limits that you have been given some Zofran from [facility] for any nausea or vomiting. Please push hydration avoid caffeinated products and try to reduce and/or quit smoking. Return to ER as needed as discussed - My Orders Last 24 Hours: My Active Orders 09/24/19 21:14 Saline Lock Insert [OM.PC] Stat 09/24/19 21:15 Sodium Chloride 0.9% [Saline Flush] 10 ml FLUSH ASDIRECTED PRN Sodium Chloride 0.9% [Saline Flush] 2.5 ml FLUSH ASDIRECTED PRN - Assessment/Plan Last 24 Hours: My Active Orders 09/24/19 21:14 Saline Lock Insert [OM.PC] Stat 09/24/19 21:15 Sodium Chloride 0.9% [Saline Flush] 10 ml FLUSH ASDIRECTED PRN Sodium Chloride 0.9% [Saline Flush] 2.5 ml FLUSH ASDIRECTED PRN
--- NOTE | 2019-09-24 22:11 | CR ---
INDICATION: cough, dizzy, weakness TECHNIQUE: Chest 2 views. COMPARISON: 05/26/19 FINDINGS: Cardiovascular and mediastinum: Heart size and vasculature are normal in caliber and appearance. Mediastinum is within normal limits. Lungs and pleural spaces: Lungs are clear. No sign of infiltrate or mass. No sign of pleural effusion. No pneumothorax. Bones and soft tissues: No significant findings. IMPRESSION: Unremarkable chest. Dictated by: Blake Rosario MD @ 09/24/2019 22:09:52 (Electronically Signed)
[2019-09-24 22:28] LABS: BLOOD UREA NITROGEN,BUN 13 mg/dL (7.0-18.0); CARBON DIOXIDE,CO2 29.5 mmol/L (21.0-32.0); CHLORIDE,CL 105 mmol/L (98-107); GLUCOSE RANDOM 89 mg/dL (74-106); POTASSIUM,K 3.7 mmol/L (3.5-5.1); SODIUM,NA 142 mmol/L (136-148)
== END 2019-09-24 22:54 | disposition home or self-care (01) ==
LOC: MW.ED 20:48
DX: R42 Dizziness and giddiness (principal); R53.81 Other malaise; R11.2 Nausea with vomiting, unspecified; B34.9 Viral infection, unspecified; R52 Pain, unspecified; Z91.011 Allergy to milk products
CPT/HCPCS: 71046; 80053; 81003; 83735; 85025; 87804; 96374; 96375; 99285; C9113; J1885; J2405; J7030

== ENCOUNTER 2020-03-12 21:26 | Emergency (ER) | payer SELFPAY ==
[2020-03-12] MEDS ORDERED: Acetaminophen 500 MG Tab PO ONE (22:01)
[2020-03-12] MEDS ORDERED: Ibuprofen 400 MG Tab PO ONE (22:01)
[2020-03-12] MEDS ORDERED: Sodium Chloride 0.9% 2.5 ML Syringe FLUSH PRN (22:02)
[2020-03-12] MEDS ORDERED: Sodium Chloride 0.9% 10 ML SDV IV PRN (22:02)
[2020-03-12] MEDS ORDERED: Sodium Chloride 0.9% 10 ML Syringe FLUSH PRN (22:02)
[2020-03-12] MEDS ORDERED: Alum Hydrox/Mag Hydrox/Simeth 15 ML, Lidocaine 2% 5 ML PO ONE ×2 (22:03)
--- NOTE | 2020-03-12 22:58 | EDM.PDOC ---
ED HPI GENERAL MEDICAL PROBLEM - General Chief Complaint: Abdominal Pain Stated Complaint: SHARP PAIN IN CHEST, NAUSEA Time Seen by Provider: 03/12/20 21:27 Source of Information: Reports: Patient History Limitations: Reports: No Limitations - History of Present Illness INITIAL COMMENTS - FREE TEXT/NARRATIVE: This patient is a 24-year-old male with a past medical history of gastritis, asthma presenting with abdominal pain and headache. He reports left upper quadrant abdominal pain present for the past several months. This pain is intermittent and radiates through to the left flank. It is worse with movement and relieved with rest. Describes it as "pulling". No self treatment prior to arrival. Patient also complains of 2 to 3 weeks of a new headache, bilateral and retro- orbital in nature. Intermittently self treating with acetaminophen and ibuprofen without much relief. Nothing makes it better or worse. Denies any photophobia or phonophobia or neck stiffness. Denies visual disturbance, difficulty swallowing, dysarthria, facial or extremity numbness or weakness, gait instability, recent head trauma. abdominal pain Pain Score (Numeric/FACES): 6 - Related Data Allergies Allergy/AdvReac Type Severity Reaction Status Date / Time lactose Allergy Stomach Verified 09/24/19 21:17 Upset Home Meds: Home Meds . [No Known Home Meds] 05/26/19 [History] Past Medical History - Past Health History Medical/Surgical History: Denies Medical/Surgical History HEENT History: Reports: None Cardiovascular History: Reports: None Respiratory History: Reports: Asthma, Other (See Below) Other Respiratory History: states he rarely uses his inhaler Gastrointestinal History: Reports: Gastritis, GERD Genitourinary History: Reports: None Musculoskeletal History: Reports: Fracture, Osteoarthritis, Other (See Below) Other Musculoskeletal History: hx fx hand Neurological History: Reports: Migraines Psychiatric History: Reports: Anxiety, Depression Endocrine/Metabolic History: Reports: None Insulin Pump Model and Inverted Block Operator: None Hematologic History: Reports: None Immunologic History: Reports: None Oncologic (Cancer) History: Reports: None Dermatologic History: Reports: None - Infectious Disease History Infectious Disease History: Reports: None - Past Surgical History Head Surgeries/Procedures: Reports: None HEENT Surgical History: Reports: Oral Surgery Other HEENT Surgeries/Procedures: wisdom teeth extraction Cardiovascular Surgical History: Reports: None Respiratory Surgical History: Reports: None GI Surgical History: Reports: Appendectomy Male Surgical History: Reports: None Endocrine Surgical History: Reports: None Neurological Surgical History: Reports: None Musculoskeletal Surgical History: Reports: None Oncologic Surgical History: Reports: None Dermatological Surgical History: Reports: None Social & Family History - Family History Family Medical History: Noncontributory - Tobacco Use Smoking Status *Q: Current Every Day Smoker Years of Tobacco use: 4 Packs/Tins Daily: 0.5 - Caffeine Use Caffeine Use: Reports: Soda - Recreational Drug Use Recreational Drug Use: No ED ROS GENERAL - Review of Systems Review Of Systems: See Below Constitutional: Denies: Fever, Chills HEENT: Denies: Eye Pain, Hearing Loss, Vision Change Respiratory: Denies: Shortness of Breath, Cough Cardiovascular: Denies: Chest Pain, Edema, Lightheadedness, Palpitations, Syncope GI/Abdominal: Reports: Abdominal Pain. Denies: Black Stool, Bloody Stool, Constipation, Diarrhea, Difficulty Swallowing, Distension, Melena, Nausea, Vomiting : Denies: Discharge, Dysuria, Flank Pain Musculoskeletal: Denies: Neck Pain, Back Pain Skin: Denies: Rash Neurological: Reports: Headache. Denies: Confusion, Dizziness, Numbness, Paresthesia, Seizure, Syncope, Tingling, Trouble Speaking, Difficulty Walking, Weakness, Change in Speech, Gait Disturbance Psychiatric: Reports: No Symptoms Hematologic/Lymphatic: Reports: No Symptoms Immunologic: Reports: No Symptoms ED EXAM, GI/ABD - Physical Exam Exam: See Below Text/Narrative:: Vital signs reviewed. Nursing notes reviewed. Constitutional: Awake, alert, non-distressed Head: Normocephalic, atraumatic Eyes: EOMI, conjunctiva normal, no discharge, no scleral icterus Ears, Nose, Throat: External ears and ears normal, moist oral mucosa Cardiovascular: 2+ radial pulse, capillary refill less than 2 seconds Pulmonary: normal work of breathing, no accessory muscle use Abdomen/GI: Soft, mild tenderness to palpation in the left upper quadrant, nondistended, no guarding or rigidity, no masses Musculoskeletal: No deformities Integumentary: Appropriate color for ethnicity, warm, dry, no pallor or jaundice , no rash Neurologic: Awake, alert, and oriented x3. Cranial nerves II through XII intact. No facial droop or dysarthria. No temporal artery tenderness. Supple neck with normal range of motion. No pronator drift. Normal finger-nose- finger and [id number]. No dysdiadochokinesia. 5/5 strength in all extremities. Sensation intact to light touch x4. Negative Romberg. Normal gait. Able to sit, stand, and ambulate without assistance. Psychiatric: Appropriate mood and affect, normal thought process Eyes: Bilateral: Normal Appearance, EOMI Nose: Normal Inspection Throat/Mouth: Normal Inspection Neck: Supple, Full Range of Motion. No: Limited Range of Motion Neurological: Alert, Oriented, CN II-XII Intact, Normal Cognition, Normal Gait, No Motor/Sensory Deficits, Other Psychiatric: Normal Affect, Normal Mood EKG INTERPRETATION EKG Date: 03/13/20 Time: 00:04 Rhythm: Other (Sinus bradycardia) Rate (Beats/Min): 57 Sutherland: Normal P-Wave: Present QRS: Normal ST-T: Normal QT: Normal Comparison: NA - No Prior EKG Course - Vital Signs Text/Narrative:: 24-year-old male presenting with left upper quadrant abdominal pain and headache , both of been present for several weeks to months. On arrival patient is hemodynamically stable, afebrile, well-appearing. Differential diagnosis included but was not limited to splenomegaly, splenic infarction, gastritis, UTI, pyelonephritis, nonspecific abdominal pain, benign headache, tension headache, migraine, intracranial malignancy, intracranial hemorrhage, etc. IV access was established and labs were sent. CBC is unremarkable. Electrolytes and renal function are normal. LFTs and lipase are also within normal limits. Urinalysis is bland, no evidence of infection. Comprehensive neurologic examination revealed no abnormalities. We did obtain a noncontrast head CT, with no acute intracranial findings to explain the patient's headache. We also obtained a CT scan of the abdomen/pelvis, which was also unremarkable. Patient was given p.o. acetaminophen along with a GI cocktail, with partial relief of his pain. While the work-up was in progress, the patient began to complain of left-sided chest discomfort. He states "I feel like I am having anxiety attack". This only started while he was here in the emergency department he has not experienced this in the past. Low suspicion for acute coronary syndrome, but we did obtain a twelve-lead EKG which shows no acute ischemia. Additionally, that patient has no historical risk factors for acute coronary syndrome such as hypertension, hyperlipidemia, diabetes, obesity, etc. He is resting comfortably and is not tachycardic or hypertensive. We initiated a broad work-up for the patient's multitude of symptoms, with no acute findings identified. There is no evidence of an acute emergency medical condition that would require admission the hospital or further testing or specialist consultation at this point. He is well-appearing and able to discharge home with primary care follow-up. Recommended [id number] acetaminophen and ibuprofen for pain. Strict ED return precautions were provided. All questions were answered prior to discharge. Last Recorded V/S: Last Vital Signs Temp 36.6 C 03/12/20 21:32 Pulse 70 03/12/20 21:32 Resp 18 03/12/20 21:32 BP 114/65 03/12/20 21:32 Pulse Ox 98 03/12/20 21:32 - Orders/Labs/Meds Orders: Active Orders 24 hr Category Date Time Status EKG 12 Lead [EKG Documentation Completion] [RC] STAT Care 03/13/20 00:01 Active Sodium Chloride 0.9% [Normal Saline] Med 03/12/20 22:02 Active 10 ml IV ASDIRECTED PRN Sodium Chloride 0.9% [Saline Flush] Med 03/12/20 22:02 Active 10 ml FLUSH ASDIRECTED PRN Sodium Chloride 0.9% [Saline Flush] Med 03/12/20 22:02 Active 2.5 ml FLUSH ASDIRECTED PRN Peripheral IV Insertion Adult [OM.PC] Stat Oth 03/12/20 22:01 Ordered Medication Orders Sodium Chloride (Saline Flush) 10 ml FLUSH ASDIRECTED PRN PRN Reason: Keep Vein Open Sodium Chloride (Saline Flush) 2.5 ml FLUSH ASDIRECTED PRN PRN Reason: Keep Vein Open Sodium Chloride (Normal Saline) 10 ml IV ASDIRECTED PRN PRN Reason: IV Use Labs: Laboratory Tests 03/12/20 03/12/20 03/12/20 Range/Units 22:33 22:33 23:16 WBC 6.99 (4.0-11.0) K/uL RBC 4.91 (4.50-5.90) M/uL Hgb 14.0 (13.0-17.0) g/dL Hct 40.1 (38.0-50.0) % MCV 81.7 (80.0-98.0) fL MCH 28.5 (27.0-32.0) pg MCHC 34.9 (31.0-37.0) g/dL RDW Std Deviation 36.9 (28.0-62.0) fl RDW Coeff of Kyle 12 (11.0-15.0) % Plt Count 221 (150-400) K/uL MPV 9.20 (7.40-12.00) fL Neut % (Auto) 53.8 (48.0-80.0) % Lymph % (Auto) 33.9 (16.0-40.0) % Snyder % (Auto) 9.9 (0.0-15.0) % Eos % (Auto) 1.7 (0.0-7.0) % Baso % (Auto) 0.7 (0.0-1.5) % Neut # (Auto) 3.8 (1.4-5.7) K/uL Lymph # (Auto) 2.4 (0.6-2.4) K/uL Snyder # (Auto) 0.7 (0.0-0.8) K/uL Eos # (Auto) 0.1 (0.0-0.7) K/uL Baso # (Auto) 0.1 (0.0-0.1) K/uL Nucleated RBC % 0.0 /100WBC Nucleated RBCs # 0 K/uL Sodium 140 (136-148) mmol/L Potassium 3.6 (3.5-5.1) mmol/L Chloride 104 (98-107) mmol/L Carbon Dioxide 26.7 (21.0-32.0) mmol/L BUN 16 (7.0-18.0) mg/dL Creatinine 0.8 (0.8-1.3) mg/dL Est Cr Clr Drug Dosing 152.02 mL/min Estimated GFR (MDRD) > 60.0 ml/min Glucose 103 (74-106) mg/dL Calcium 9.0 (8.5-10.1) mg/dL Total Bilirubin 0.3 (0.2-1.0) mg/dL AST 22 (15-37) IU/L ALT 34 (14-63) IU/L Alkaline Phosphatase 63 (46-116) U/L Total Protein 7.4 (6.4-8.2) g/dL Albumin 4.4 (3.4-5.0) g/dL Globulin 3.0 (2.6-4.0) g/dL Albumin/Globulin Ratio 1.5 (0.9-1.6) Lipase 68 L (73-393) U/L Urine Color YELLOW Urine Appearance CLEAR Urine pH 5.5 (5.0-8.0) Ur Specific Riner >= 1.030 (1.001-1.035) Urine Protein NEGATIVE (NEGATIVE) mg/dL Urine Glucose (UA) NEGATIVE (NEGATIVE) mg/dL Urine Ketones NEGATIVE (NEGATIVE) mg/dL Urine Occult Blood NEGATIVE (NEGATIVE) Urine Nitrite NEGATIVE (NEGATIVE) Urine Bilirubin NEGATIVE (NEGATIVE) Urine Urobilinogen 0.2 (<2.0) EU/dL Ur Leukocyte Esterase NEGATIVE (NEGATIVE) Meds: Medications Generic Name Dose Route Start Last Admin Trade Name Jamal PRN Reason Stop Dose Admin Sodium Chloride 10 ml 03/12/20 22:02 Saline Flush FLUSH ASDIRECTED PRN Keep Vein Open Sodium Chloride 2.5 ml 03/12/20 22:02 Saline Flush FLUSH ASDIRECTED PRN Keep Vein Open Sodium Chloride 10 ml 03/12/20 22:02 Normal Saline IV ASDIRECTED PRN IV Use Discontinued Medications Generic Name Dose Route Start Last Admin Trade Name Freq PRN Reason Stop Dose Admin Acetaminophen 1,000 mg 03/12/20 22:01 03/12/20 22:35 Tylenol Extra Strength PO 03/12/20 22:02 1,000 mg ONETIME ONE Administration Al Hydroxide/Mg Hydroxide 15 0 ml 03/12/20 22:03 03/12/20 22:36 ml/ Lidocaine HCl 5 ml PO 03/12/20 22:04 20 each ONETIME ONE Administration Ibuprofen 400 mg 03/12/20 22:01 03/12/20 22:34 Motrin PO 03/12/20 22:02 400 mg ONETIME ONE Administration Iopamidol 100 ml 03/12/20 23:39 03/12/20 23:40 Isovue-370 (76%) IVPUSH 03/12/20 23:40 100 ml ONETIME ONE Administration Departure - Departure Time of Disposition: 00:57 Disposition: Home, Self-Care 01 Condition: Good Clinical Impression: Left upper quadrant abdominal pain, Atypical chest pain Headache Qualifiers: Headache type: unspecified Headache chronicity pattern: episodic headache Intractability: not intractable Qualified Code(s): R51 - Headache - Discharge Information *PRESCRIPTION DRUG MONITORING PROGRAM REVIEWED*: Not Applicable *COPY OF PRESCRIPTION DRUG MONITORING REPORT IN PATIENT HILARIO: Not Applicable Instructions: Nonspecific Chest Pain, Adult, General Headache Without Cause, Abdominal Pain, Adult Referrals: Diane MCCAULEY [Primary Care Provider] - 1 Week (For follow-up of your symptoms) Forms: ED Department Discharge Additional Instructions: I recommend [id number] acetaminophen and ibuprofen for pain. Please follow-up with your primary medical doctor in the next week for follow-up of your symptoms. Return to the emergency department immediately if you are feeling worse. The following information is given to patients seen in the emergency department who are being discharged to home. This information is to outline your options for follow-up care. We provide all patients seen in our emergency department with a follow-up referral. The need for follow-up, as well as the timing and circumstances, are variable depending upon the specifics of your emergency department visit. If you don't have a primary care physician on staff, we will provide you with a referral. We always advise you to contact your personal physician following an emergency department visit to inform them of the circumstance of the visit and for follow-up with them and/or the need for any referrals to a consulting specialist. The emergency department will also refer you to a specialist when appropriate. This referral assures that you have the opportunity for follow-up care with a specialist. All of these measure are taken in an effort to provide you with optimal care, which includes your follow-up. Under all circumstances we always encourage you to contact your private physician who remains a resource for coordinating your care. When calling for follow-up care, please make the office aware that this follow-up is from your recent emergency room visit. If for any reason you are refused follow-up, please contact the [facility] Emergency Department at and asked to speak to the emergency department charge nurse. Sepsis Event Note - Evaluation Sepsis Screening Result: No Definite Risk - Focused Exam Vital Signs: Vital Signs Temp Pulse Resp BP Pulse Ox 03/12/20 21:32 36.6 C 70 18 114/65 98 Date Exam was Performed: 03/13/20 Time Exam was Performed: 00:52 - My Orders Last 24 Hours: My Active Orders 03/12/20 22:01 Peripheral IV Insertion Adult [OM.PC] Stat 03/12/20 22:02 Sodium Chloride 0.9% [Normal Saline] 10 ml IV ASDIRECTED PRN Sodium Chloride 0.9% [Saline Flush] 10 ml FLUSH ASDIRECTED PRN Sodium Chloride 0.9% [Saline Flush] 2.5 ml FLUSH ASDIRECTED PRN 03/13/20 00:01 EKG 12 Lead [EKG Documentation Completion] [RC] STAT - Assessment/Plan Last 24 Hours: My Active Orders 03/12/20 22:01 Peripheral IV Insertion Adult [OM.PC] Stat 03/12/20 22:02 Sodium Chloride 0.9% [Normal Saline] 10 ml IV ASDIRECTED PRN Sodium Chloride 0.9% [Saline Flush] 10 ml FLUSH ASDIRECTED PRN Sodium Chloride 0.9% [Saline Flush] 2.5 ml FLUSH ASDIRECTED PRN 03/13/20 00:01 EKG 12 Lead [EKG Documentation Completion] [RC] STAT
[2020-03-12 23:10] LABS: BLOOD UREA NITROGEN,BUN 16 mg/dL (7.0-18.0); CARBON DIOXIDE,CO2 26.7 mmol/L (21.0-32.0); CHLORIDE,CL 104 mmol/L (98-107); GLUCOSE RANDOM 103 mg/dL (74-106); LIPASE 68 U/L (73-393); POTASSIUM,K 3.6 mmol/L (3.5-5.1); SODIUM,NA 140 mmol/L (136-148)
[2020-03-12] MEDS ORDERED: Iopamidol 755 Mg/ML 100 ML Bottle IVPUSH ONE (23:39)
--- NOTE | 2020-03-12 23:49 | CT ---
INDICATION: New onset headache, temporal pain TECHNIQUE: CT head without contrast. COMPARISON: None. FINDINGS: CSF spaces: No hydrocephalus. Mild asymmetry of the lateral ventricles although within physiologic variance. Brain parenchyma: The hurley-white differentiation is normal. No sign of mass, hemorrhage, or midline shift. Skull base and calvarium: Mucous retention cyst right maxillary sinus. The visualized orbits are grossly unremarkable. No skull fractures. IMPRESSION: Unremarkable noncontrast head CT. Please note that all CT scans at this facility use dose modulation, iterative reconstruction, and/or weight-based dosing when appropriate to reduce radiation dose to as low as reasonably achievable. Dictated by Juan José Valles MD @ Mar 12 2020 11:43PM Signed by Dr. Juan José Valles @ Mar 12 2020 11:48PM
--- NOTE | 2020-03-13 00:03 | CT ---
INDICATION: Subacute left upper quadrant pain TECHNIQUE: Axial images were obtained from the diaphragm to the pubic symphysis. Reformats were obtained in the coronal and sagittal plane. IV Contrast: 100 cc Isovue 370 Oral Contrast: None COMPARISON: None. FINDINGS: Lower chest: Unremarkable. Liver: Unremarkable. Normal in size and attenuation. No masses. Gallbladder and bile ducts: Contracted gallbladder. Common duct is normal in caliber. Spleen: Unremarkable. Normal in size without mass. Pancreas: Unremarkable. No mass or inflammation. Adrenal glands: Unremarkable. No nodules. Kidneys: Unremarkable. No masses, stones, or hydronephrosis. Vasculature: Unremarkable. GI tract: The stomach is decompressed. No dilated loops of large or small intestine. Suture line in the right lower quadrant. Pelvis: Unremarkable. Bones: Unremarkable for age. IMPRESSION: Unremarkable abdomen and pelvis CT. No findings to explain the patient`s pain. No dilated bowel or localized inflammation. Please note that all CT scans at this facility use dose modulation, iterative reconstruction, and/or weight-based dosing when appropriate to reduce radiation dose to as low as reasonably achievable. Dictated by Juan José Valles MD @ Mar 12 2020 11:43PM Signed by Dr. Juan José Valles @ Mar 13 2020 12:01AM
== END 2020-03-13 01:04 | disposition home or self-care (01) ==
LOC: MW.ED 21:26
DX: R10.12 Left upper quadrant pain (principal); R07.89 Other chest pain; R51 Headache; J45.909 Unspecified asthma, uncomplicated; F17.210 Nicotine dependence, cigarettes, uncomplicated; Z88.8 Allergy status to other drugs, medicaments and biological substances
CPT/HCPCS: 36415; 70450; 74177; 80053; 81003; 83690; 85025; 93005; 99284; A9270; Q9967

== ENCOUNTER 2020-03-20 23:37 | Emergency (ER) | payer SELFPAY ==
[2020-03-20] MEDS ORDERED: Alum Hydrox/Mag Hydrox/Simeth 15 ML, Lidocaine 2% 5 ML PO ONE ×2 (23:55)
--- NOTE | 2020-03-21 00:31 | EDM.PDOC ---
ED HPI GENERAL MEDICAL PROBLEM - General Chief Complaint: Abdominal Pain Stated Complaint: UPPER ABDOMINAL PAIN Time Seen by Provider: 03/20/20 23:54 Source of Information: Reports: Patient History Limitations: Reports: No Limitations - History of Present Illness INITIAL COMMENTS - FREE TEXT/NARRATIVE: 24-year-old male with past medical history of asthma, anxiety presenting with abdominal pain. Seen by myself in this emergency department approximately 1 week ago. He reports several months of left upper quadrant abdominal pain. He states it is difficult to eat or drink due to this pain. Since I saw him in the emergency department, he states that he was seen at 2 hospitals in [place]. He states that he was recently admitted to an ICU in [place] due to a GI bleed. He tells me that the doctors were concerned about gastritis and recommended an EGD, which he refused. He returned to [place] with complaints of the same ongoing left upper quadrant abdominal pain. He has been taking Protonix along with Zofran and Carafate without much symptomatic relief. He presents back to the emergency department this evening with identical complaints. He denies any history of fever, chest discomfort, rectal bleeding, or hematemesis. No dysuria or urinary frequency. No recent abdominal trauma. L upper abdomen Pain Score (Numeric/FACES): 11 - Related Data Allergies Allergy/AdvReac Type Severity Reaction Status Date / Time lactose Allergy Stomach Verified 03/20/20 23:50 Upset Home Meds: Home Meds LORazepam [Ativan] 1 tab PO ASDIRECTED PRN 03/20/20 [History] Ondansetron [Zofran] 1 tab PO Q6H PRN 03/20/20 [History] Pantoprazole Sodium [Protonix] 1 tab PO BID 03/20/20 [History] Sucralfate [Carafate] 1 tab PO QID 03/20/20 [History] Past Medical History - Past Health History Medical/Surgical History: Denies Medical/Surgical History HEENT History: Reports: None Cardiovascular History: Reports: None Respiratory History: Reports: Asthma, Other (See Below) Other Respiratory History: states he rarely uses his inhaler Gastrointestinal History: Reports: Gastritis, GERD Genitourinary History: Reports: None Musculoskeletal History: Reports: Fracture, Osteoarthritis, Other (See Below) Other Musculoskeletal History: hx fx hand Neurological History: Reports: Migraines Psychiatric History: Reports: Anxiety, Depression Endocrine/Metabolic History: Reports: None Insulin Pump Model and Business Mgr: None Hematologic History: Reports: None Immunologic History: Reports: None Oncologic (Cancer) History: Reports: None Dermatologic History: Reports: None - Infectious Disease History Infectious Disease History: Reports: None - Past Surgical History Head Surgeries/Procedures: Reports: None HEENT Surgical History: Reports: Oral Surgery Other HEENT Surgeries/Procedures: wisdom teeth extraction Cardiovascular Surgical History: Reports: None Respiratory Surgical History: Reports: None GI Surgical History: Reports: Appendectomy Male Surgical History: Reports: None Endocrine Surgical History: Reports: None Neurological Surgical History: Reports: None Musculoskeletal Surgical History: Reports: None Oncologic Surgical History: Reports: None Dermatological Surgical History: Reports: None Social & Family History - Family History Family Medical History: Noncontributory - Tobacco Use Smoking Status *Q: Current Every Day Smoker Years of Tobacco use: 4 Packs/Tins Daily: 0.5 - Caffeine Use Caffeine Use: Reports: Soda - Recreational Drug Use Recreational Drug Use: No ED ROS GENERAL - Review of Systems Review Of Systems: See Below Constitutional: Denies: Fever, Chills HEENT: Reports: No Symptoms Respiratory: Denies: Shortness of Breath Cardiovascular: Denies: Chest Pain Endocrine: Reports: No Symptoms GI/Abdominal: Reports: Abdominal Pain, Anorexia, Nausea. Denies: Black Stool, Bloody Stool, Constipation, Diarrhea, Distension, Hematemesis, Hematochezia, Melena, Vomiting : Denies: Discharge, Dysuria, Flank Pain, Hematuria Musculoskeletal: Reports: No Symptoms Skin: Reports: No Symptoms Neurological: Reports: No Symptoms Psychiatric: Reports: No Symptoms Hematologic/Lymphatic: Reports: No Symptoms Immunologic: Reports: No Symptoms ED EXAM, GI/ABD - Physical Exam Exam: See Below Text/Narrative:: Vital signs reviewed. Nursing notes reviewed. Constitutional: Awake, alert, non-distressed. Head: Normocephalic, atraumatic. Eyes: EOMI, conjunctiva normal, no discharge, no scleral icterus. Ears, Nose, Throat: External ears and ears normal, moist oral mucosa. Cardiovascular: 2+ radial pulse, capillary refill less than 2 seconds. Pulmonary: normal work of breathing, no accessory muscle use. Abdomen/GI: Soft, mild left upper quadrant abdominal tenderness, nondistended, no guarding or rigidity, no masses. Musculoskeletal: No deformities. Integumentary: Appropriate color for ethnicity, warm, dry, no pallor or jaundice , no rash. Neurologic: Alert, answering questions appropriately, normal speech, no facial droop, moving all extremities well. Psychiatric: Appropriate mood and affect, normal thought process. Course - Vital Signs Text/Narrative:: Patient hemodynamically stable, afebrile, well-appearing, looks nontoxic. Differential diagnosis includes but is not limited to: Splenic infarction, splenomegaly, post mono syndrome, gastritis, peptic ulcer disease, GI bleed, pancreatitis, bowel obstruction, ileus, acute blood loss anemia, nonspecific abdominal pain, and many others 0030: IV access established and labs were sent. Initially ordered a GI cocktail , which the patient refused. He states that he does not want to take GI cocktail because it causes issues with his anxiety during his recent hospitalization in [place]. I counseled him that we could offer acetaminophen as an alternative which she also refused. I reiterated that we will not be offering any narcotic medications to address his chronic pain at this point. 0045: X-rays are unremarkable. CBC is reassuring. Awaiting other labs. Patient still refusing any symptomatic treatment with medications. 0101: Additional labs returned, showing mild hypokalemia with a potassium of 3.2. Negative troponin. Normal creatinine and liver markers. Lipase within normal limits. 0108: Patient continues to have ongoing left upper quadrant pain. Repeated abdominal examination, still has minimal tenderness in the left upper quadrant but otherwise no new or concerning findings. Still does not want any analgesic medications or a GI cocktail. He will be discharged home. I suggested adding [id number] Maalox max in addition to his pre-existing pantoprazole, Carafate, and sucralfate. Patient has been told numerous times that he needs to see a ball winder and needs to have EGD performed. I reiterated this to the patient and he explicitly voiced understanding. We also discussed his very mild hypokalemia and I made dietary recommendations to address this instead of prescribing potassium powder. Plan: Patient is stable to discharge home with outpatient gastroenterology follow-up. Strict emergency department return precautions were provided, patient indicated understanding. All questions were answered prior to departure. Discharged in good condition. Last Recorded V/S: Last Vital Signs Temp 35.6 C L 03/20/20 23:43 Pulse 67 03/20/20 23:43 Resp 18 03/20/20 23:43 BP 125/72 03/20/20 23:43 Pulse Ox 98 03/20/20 23:43 - Orders/Labs/Meds Orders: Active Orders 24 hr Category Date Time Status EKG 12 Lead [EKG Documentation Completion] [RC] STAT Care 03/20/20 23:55 Active Labs: Laboratory Tests 03/21/20 03/21/20 Range/Units 00:18 00:18 WBC 8.02 (4.0-11.0) K/uL RBC 4.56 (4.50-5.90) M/uL Hgb 13.3 (13.0-17.0) g/dL Hct 36.7 L (38.0-50.0) % MCV 80.5 (80.0-98.0) fL MCH 29.2 (27.0-32.0) pg MCHC 36.2 (31.0-37.0) g/dL RDW Std Deviation 34.4 (28.0-62.0) fl RDW Coeff of Kyle 12 (11.0-15.0) % Plt Count 233 (150-400) K/uL MPV 8.70 (7.40-12.00) fL Neut % (Auto) 56.7 (48.0-80.0) % Lymph % (Auto) 31.4 (16.0-40.0) % [place] % (Auto) 8.9 (0.0-15.0) % Eos % (Auto) 2.5 (0.0-7.0) % Baso % (Auto) 0.5 (0.0-1.5) % Neut # (Auto) 4.6 (1.4-5.7) K/uL Lymph # (Auto) 2.5 H (0.6-2.4) K/uL [place] # (Auto) 0.7 (0.0-0.8) K/uL Eos # (Auto) 0.2 (0.0-0.7) K/uL Baso # (Auto) 0.0 (0.0-0.1) K/uL Sodium 141 (136-148) mmol/L Potassium 3.2 L (3.5-5.1) mmol/L Chloride 104 (98-107) mmol/L Carbon Dioxide 27.5 (21.0-32.0) mmol/L BUN 9 (7.0-18.0) mg/dL Creatinine 0.8 (0.8-1.3) mg/dL Est Cr Clr Drug Dosing 152.02 mL/min Estimated GFR (MDRD) > 60.0 ml/min Glucose 96 (74-106) mg/dL Calcium 8.5 (8.5-10.1) mg/dL Total Bilirubin 0.6 (0.2-1.0) mg/dL AST 21 (15-37) IU/L ALT 29 (14-63) IU/L Alkaline Phosphatase 53 (46-116) U/L Troponin I < 0.050 (0.000-0.056) ng/mL Total Protein 6.9 (6.4-8.2) g/dL Albumin 4.1 (3.4-5.0) g/dL Globulin 2.8 (2.6-4.0) g/dL Albumin/Globulin Ratio 1.5 (0.9-1.6) Lipase 63 L (73-393) U/L Meds: Medications Discontinued Medications Generic Name Dose Route Start Last Admin Trade Name Freq PRN Reason Stop Dose Admin Al Hydroxide/Mg Hydroxide 15 0 ml 03/20/20 23:55 03/21/20 00:11 ml/ Lidocaine HCl 5 ml PO 03/20/20 23:56 Not Given ONETIME ONE Departure - Departure Time of Disposition: 01:10 Disposition: Home, Self-Care 01 Condition: Good Clinical Impression: Abdominal pain, chronic, left upper quadrant, Hypokalemia - Discharge Information *PRESCRIPTION DRUG MONITORING PROGRAM REVIEWED*: Not Applicable *COPY OF PRESCRIPTION DRUG MONITORING REPORT IN PATIENT HILARIO: Not Applicable Instructions: Hypokalemia, Abdominal Pain, Adult, [id number], Chronic Pain, Adult, Potassium Content of Foods Referrals: [facility] [Outside] - 1 Week (To our knowledge, the closest gastroenterology clinic is through [facility] in [place], [place]. I recommend that you establish an appointment with them in the next 1 to 2 weeks for further evaluation of your abdominal pain.) Forms: ED Department Discharge Additional Instructions: Thank you for choosing the [facility] emergency department in [place] for your medical needs today. It was a pleasure caring for you. You were seen in the emergency department for abdominal pain. Please continue taking your previously prescribed medications. You can also try taking over-the -counter Maalox max to see if that helps. You need to follow-up with a gastroenterology clinic the next 1 to 2 weeks as previously discussed. Please return the emergency department immediately if your symptoms worsen or if you feel worse. The following information is given to patients seen in the emergency department who are being discharged. This information is to outline your options for follow -up care. We provide all patients seen in our emergency department with a follow -up referral. The need for follow-up, as well as the timing and circumstances, are variable depending upon the specifics of your emergency department visit. If you don't have a primary care physician on staff, we will provide you with a referral. We always advise you to contact your personal physician following an emergency department visit to inform them of the circumstance of the visit and for follow-up with them and/or the need for any referrals to a consulting specialist. The emergency department will also refer you to a specialist when appropriate. This referral assures that you have the opportunity for follow-up care with a specialist. All of these measure are taken in an effort to provide you with optimal care, which includes your follow-up. Under all circumstances we always encourage you to contact your private physician who remains a resource for coordinating your care. When calling for follow-up care, please make the office aware that this follow-up is from your recent emergency room visit. If for any reason you are refused follow-up, please contact the [facility] Emergency Department at and asked to speak to the emergency department charge nurse. If you do not have a primary care physician that is caring for you, you can contact these clinics below to set up an appointment to establish care: [facility] [place] [facility] - Primary Care [address] [place] [id number] [facility] [address] [place] [id number] Sepsis Event Note - Evaluation Sepsis Screening Result: No Definite Risk - Focused Exam Vital Signs: Vital Signs Temp Pulse Resp BP Pulse Ox 03/20/20 23:43 35.6 C L 67 18 125/72 98 Date Exam was Performed: 03/21/20 Time Exam was Performed: 01:09 - My Orders Last 24 Hours: My Active Orders 03/20/20 23:55 EKG 12 Lead [EKG Documentation Completion] [RC] STAT - Assessment/Plan Last 24 Hours: My Active Orders 03/20/20 23:55 EKG 12 Lead [EKG Documentation Completion] [RC] STAT
--- NOTE | 2020-03-21 00:34 | CR ---
INDICATION: Pt w/epigastric abdominal pain. TECHNIQUE: Chest 2 views. COMPARISON: None. FINDINGS: Cardiovascular and mediastinum: Heart size and vasculature are normal in caliber and appearance. Mediastinum is within normal limits. Lungs and pleural spaces: Lungs are clear. No sign of infiltrate or mass. No sign of pleural effusion. No pneumothorax. Bones and soft tissues: No significant findings. IMPRESSION: Unremarkable chest. Dictated by: Blake Rosario MD @ 03/21/2020 00:32:18 (Electronically Signed)
[2020-03-21 00:54] LABS: BLOOD UREA NITROGEN,BUN 9 mg/dL (7.0-18.0); CARBON DIOXIDE,CO2 27.5 mmol/L (21.0-32.0); CHLORIDE,CL 104 mmol/L (98-107); GLUCOSE RANDOM 96 mg/dL (74-106); LIPASE 63 U/L (73-393); POTASSIUM,K 3.2 mmol/L (3.5-5.1); SODIUM,NA 141 mmol/L (136-148)
== END 2020-03-21 01:22 | disposition home or self-care (01) ==
LOC: MW.ED 23:37
DX: E87.6 Hypokalemia (principal); R10.12 Left upper quadrant pain; G89.29 Other chronic pain; K21.9 Gastro-esophageal reflux disease without esophagitis; F41.9 Anxiety disorder, unspecified; F32.9 Major depressive disorder, single episode, unspecified; F17.210 Nicotine dependence, cigarettes, uncomplicated; Z88.8 Allergy status to other drugs, medicaments and biological substances; Z79.899 Other long term (current) drug therapy
CPT/HCPCS: 36415; 71046; 71046-26; 80053; 83690; 84484; 85025; 93005; 99282; 99284-25

== ENCOUNTER 2020-06-03 18:07 | Observation (INO) | payer MEDICAID ==
--- NOTE | 2020-06-03 19:22 | EDM.PDOC ---
ED HPI GENERAL MEDICAL PROBLEM - General Chief Complaint: ENT Problem Stated Complaint: COUGH Time Seen by Provider: 06/03/20 18:30 Source of Information: Reports: Patient History Limitations: Reports: No Limitations - History of Present Illness INITIAL COMMENTS - FREE TEXT/NARRATIVE: HISTORY AND PHYSICAL: History of present illness: Patient is a 25-year-old male who presents to the ED today with concern of cough for the past week and a half. Patient states 2 weeks ago he did quit smoking cigarettes and switched over to a vaporizing pen in order to try for smoking cessation. Patient states that since switching over he has noticed that he has had a dry persistent cough. Patient states that at times he feels like he cannot take a deep breath due to this sensation. Patient states that he has not been in contact with any cold positive patients that he is aware. Patient states he does have a history of asthma and has inhalers at home that he chooses not to use. Patient denies any other symptoms or concerns. Patient denies fever, chills, chest pain, shortness of breath. Denies headache, neck stiff ness, change in vision, syncope, or near syncope. Denies nausea, vomiting, abdominal pain, diarrhea, constipation, or dysuria. Has not noted any blood in urine or stool. Patient has been eating and drinking appropriately. Review of systems: As per history of present illness and below otherwise all systems reviewed and negative. Past medical history: As per history of present illness and as reviewed below otherwise noncontributory. Surgical history: As per history of present illness and as reviewed below otherwise noncontributory. Social history: See social history for further information Family history: As per history of present illness and as reviewed below otherwise noncontributory. Physical exam: General: Patient is alert, oriented, and in no acute distress. Patient sitting comfortably on exam table. HEENT: Atraumatic, normocephalic, pupils equal and reactive bilaterally, negative for conjunctival pallor or scleral icterus, mucous membranes moist, TMs normal bilaterally, throat clear but mildly erythematous without exudate, uvula midline, neck supple, nontender, trachea midline. No drooling or trismus noted. No meningeal signs. No hot potato voice noted. Lungs: Patient does have dry cough on exam. Patient speaking clearly without breathlessness, no wheezing or stridor, no accessory muscle use or respiratory distress. Auscultation deferred due to current COV-ID 19 outbreak. Heart: Auscultation deferred due to COVID19 outbreak Abdomen: Soft, nondistended, nontender. Negative for masses or hepatosplenomegaly. Negative for costovertebral tenderness. Pelvis: Stable nontender. Genitourinary: Deferred. Rectal: Deferred. Skin: Intact, warm, dry. No lesions or rashes noted. Extremities: Atraumatic, negative for cords or calf pain. Neurovascular unremarkable. Neuro: Awake, alert, oriented. Cranial nerves II through XII unremarkable. Cerebellum unremarkable. Motor and sensory unremarkable throughout. Exam nonfocal. Notes: Patient declines all diagnostics other than COVID and Strep swabs. Discussed importance for follow-up with primary care provider. Voices understanding and is agreeable to plan of care. Denies any further questions or concerns at this time. Diagnostics: COVID19, Strep Therapeutics: None Prescription: None Impression: Cough Plan: 1. You can alternate ibuprofen and Tylenol as directed for pain and discomfort. Use your inhalers as prescribed to you prior. 2. Follow-up with a primary care provider as discussed. Return to the ED as needed and as discussed. Definitive disposition and diagnosis as appropriate pending reevaluation and review of above. throat Pain Score (Numeric/FACES): 6 - Related Data Allergies Allergy/AdvReac Type Severity Reaction Status Date / Time lactose Allergy Stomach Verified 06/03/20 19:14 Upset Home Meds: Home Meds . [No Known Home Meds] 06/03/20 [History] Past Medical History - Past Health History Medical/Surgical History: Denies Medical/Surgical History HEENT History: Reports: None Cardiovascular History: Reports: None Respiratory History: Reports: Asthma, Other (See Below) Other Respiratory History: states he rarely uses his inhaler Gastrointestinal History: Reports: Gastritis, GERD Genitourinary History: Reports: None Musculoskeletal History: Reports: Fracture, Osteoarthritis, Other (See Below) Other Musculoskeletal History: hx fx hand Neurological History: Reports: Migraines Psychiatric History: Reports: Anxiety, Depression Endocrine/Metabolic History: Reports: None Insulin Pump Model and Scrap Picker: None Hematologic History: Reports: None Immunologic History: Reports: None Oncologic (Cancer) History: Reports: None Dermatologic History: Reports: None - Infectious Disease History Infectious Disease History: Reports: None - Past Surgical History Head Surgeries/Procedures: Reports: None HEENT Surgical History: Reports: Oral Surgery Other HEENT Surgeries/Procedures: wisdom teeth extraction Cardiovascular Surgical History: Reports: None Respiratory Surgical History: Reports: None GI Surgical History: Reports: Appendectomy Male Surgical History: Reports: None Endocrine Surgical History: Reports: None Neurological Surgical History: Reports: None Musculoskeletal Surgical History: Reports: None Oncologic Surgical History: Reports: None Dermatological Surgical History: Reports: None Social & Family History - Family History Family Medical History: Noncontributory - Caffeine Use Caffeine Use: Reports: Soda ED ROS GENERAL - Review of Systems Review Of Systems: Comprehensive ROS is negative, except as noted in HPI. ED EXAM, GENERAL - Physical Exam Exam: See Below (See dictation) Course - Vital Signs Last Recorded V/S: Last Vital Signs Temp 97.1 F 06/03/20 19:11 Pulse 67 06/03/20 19:11 Resp 17 06/03/20 19:11 BP 91/61 06/03/20 19:11 Pulse Ox 100 06/03/20 19:11 - Orders/Labs/Meds Orders: Active Orders 24 hr Category Date Time Status CULTURE STREP A CONFIRMATION [RM] Stat Lab 06/03/20 19:24 Results STREP SCRN A RAPID W CULT CONF [RM] Stat Lab 06/03/20 19:24 Results Labs: Laboratory Tests 06/03/20 Range/Units 19:24 COVID-19 (CARMEN) NEGATIVE (NEGATIVE) Departure - Departure Time of Disposition: 20:29 Disposition: Home, Self-Care 01 Clinical Impression: Cough - Discharge Information Referrals: PCP,None [Primary Care Provider] - Forms: ED Department Discharge Additional Instructions: The following information is given to patients seen in the emergency department who are being discharged to home. This information is to outline your options for follow-up care. We provide all patients seen in our emergency department with a follow-up referral. The need for follow-up, as well as the timing and circumstances, are variable depending upon the specifics of your emergency department visit. If you don't have a primary care physician on staff, we will provide you with a referral. We always advise you to contact your personal physician following an emergency department visit to inform them of the circumstance of the visit and for follow-up with them and/or the need for any referrals to a consulting specialist. The emergency department will also refer you to a specialist when appropriate. This referral assures that you have the opportunity for follow-up care with a specialist. All of these measure are taken in an effort to provide you with optimal care, which includes your follow-up. Under all circumstances we always encourage you to contact your private physician who remains a resource for coordinating your care. When calling for follow-up care, please make the office aware that this follow-up is from your recent emergency room visit. If for any reason you are refused follow-up, please contact the [facility] Emergency Department at and asked to speak to the emergency department charge nurse. [facility] Primary Care [address], [place] [address] [facility] [address] [place] [id number] 1. You can alternate ibuprofen and Tylenol as directed for pain and discomfort. Use your inhalers as prescribed to you prior. 2. Follow-up with a primary care provider as discussed. Return to the ED as needed and as discussed. Sepsis Event Note (ED) - Evaluation Sepsis Screening Result: No Definite Risk - Focused Exam Vital Signs: Vital Signs Temp Pulse Resp BP Pulse Ox 06/03/20 19:11 97.1 F 67 17 91/61 100 - My Orders Last 24 Hours: My Active Orders 06/03/20 19:24 CULTURE STREP A CONFIRMATION [RM] Stat STREP SCRN A RAPID W CULT CONF [RM] Stat - Assessment/Plan Last 24 Hours: My Active Orders 06/03/20 19:24 CULTURE STREP A CONFIRMATION [RM] Stat STREP SCRN A RAPID W CULT CONF [RM] Stat
[2020-06-03] MEDS ORDERED: methylPREDNISolone Sodium Succinate 125 MG/2 ML SDV IM ONE (21:27)
[2020-06-03] MEDS ORDERED: Albuterol/Ipratropium 3.0-0.5 MG/3 ML Neb Soln NEB ONE (21:28)
--- NOTE | 2020-06-03 21:41 | CR ---
Chest: 2 views of the chest were obtained. Comparison: Previous chest x-ray of 03/21/20. Heart size and mediastinum are normal. Lungs are clear. Bony structures appear within normal limits for the patient's age. Impression: 1. Nothing acute is seen on 2 view chest x-ray. Diagnostic code #1 Study was dictated in MDT
--- NOTE | 2020-06-03 21:45 | CR ---
Soft tissue neck: AP and lateral views of the neck were obtained for soft tissue purposes. Subglottic narrowing is identified most likely from subglottic edema. Bony structures are unremarkable. Prevertebral soft tissues are normal. Possible thickening is noted within the base of the epiglottis. Impression: 1. Subglottic narrowing most likely representing edema. 2. Thickening of the base of the epiglottis suspicious for epiglottitis. Diagnostic code #5 Study was dictated in MDT
[2020-06-03] MEDS ORDERED: Sodium Chloride 0.9% 2.5 ML Syringe FLUSH PRN (22:17)
[2020-06-03] MEDS ORDERED: Sodium Chloride 0.9% 10 ML Syringe FLUSH PRN (22:17)
[2020-06-03] MEDS ORDERED: cefTRIAXone 1 GM in Premix Bag 1 BAG IV ONE (22:25)
[2020-06-03 23:13] LABS: BLOOD UREA NITROGEN,BUN 10 mg/dL (7.0-18.0); CARBON DIOXIDE,CO2 23.9 mmol/L (21.0-32.0); CHLORIDE,CL 100 mmol/L (98-107); GLUCOSE RANDOM 93 mg/dL (74-106); POTASSIUM,K 3.6 mmol/L (3.5-5.1); SODIUM,NA 137 mmol/L (136-148)
[2020-06-04] MEDS: Sodium Chloride 0.9% 1,000 ML IV SCH ×3 (00:47→21:56)
--- NOTE | 2020-06-04 01:14 | PCM.HP.2 ---
H&P History of Present Illness - General Date of Service: 06/04/20 Admit Problem/Dx: Admission Diagnosis/Problem Admission Diagnosis/Problem Epiglottitis - History of Present Illness Initial Comments - Free Text/Narative: 25 yo male who presents with one week history of sore throat. Patient reports today he was unable to eat anything because of the pain. He denies any fevers but reports chills. He denies any shortness of breath or difficulty swallowing secretions. I the ED X-ray of neck was suggestive of epiglottis. throat Pain Score (Numeric/FACES): 6 - Related Data Allergies/Adverse Reactions: Allergies Allergy/AdvReac Type Severity Reaction Status Date / Time lactose Allergy Stomach Verified 06/03/20 19:14 Upset Home Medications: Home Meds . [No Known Home Meds] 06/03/20 [History] Past Medical History - Past Health History Medical/Surgical History: Denies Medical/Surgical History HEENT History: Reports: None Cardiovascular History: Reports: None Respiratory History: Reports: Asthma, Other (See Below) Other Respiratory History: states he rarely uses his inhaler Gastrointestinal History: Reports: Gastritis, GERD Genitourinary History: Reports: None Musculoskeletal History: Reports: Fracture, Osteoarthritis, Other (See Below) Other Musculoskeletal History: hx fx hand Neurological History: Reports: Migraines Psychiatric History: Reports: Anxiety, Depression Endocrine/Metabolic History: Reports: 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 Fish: None Hematologic History: Reports: None Immunologic History: Reports: None Oncologic (Cancer) History: Reports: None Dermatologic History: Reports: None - Infectious Disease History Infectious Disease History: Reports: None - Past Surgical History Head Surgeries/Procedures: Reports: None HEENT Surgical History: Reports: Oral Surgery Other HEENT Surgeries/Procedures: wisdom teeth extraction Cardiovascular Surgical History: Reports: None Respiratory Surgical History: Reports: None GI Surgical History: Reports: Appendectomy Male Surgical History: Reports: None Endocrine Surgical History: Reports: None Neurological Surgical History: Reports: None Musculoskeletal Surgical History: Reports: None Oncologic Surgical History: Reports: None Dermatological Surgical History: Reports: None Social & Family History - Family History Family Medical History: Noncontributory - Caffeine Use Caffeine Use: Reports: Soda - Recreational Drug Use Recreational Drug Use: No H&P Review of Systems - Review of Systems: Review Of Systems: Comprehensive ROS is negative, except as noted in HPI. Exam - Exam Exam: See Below - Vital Signs Vital Signs: Last Vital Signs Temp 36.6 C 06/04/20 00:00 Pulse 72 06/03/20 22:50 Resp 11 L 06/04/20 00:00 BP 103/58 L 06/04/20 00:00 Pulse Ox 99 06/04/20 00:00 Weight: 67.449 kg - Exam General: Alert, Oriented. No: Mild Distress HEENT: Mucosa Moist & [place], Other (posterior pharynx erythematous, no exudates, no edema) Neck: Supple, Trachea Midline. No: Lymphadenopathy Lungs: Clear to Auscultation, Normal Respiratory Effort Cardiovascular: Regular Rate, Regular Rhythm GI/Abdominal Exam: Normal Bowel Sounds, Soft, Non-Tender, No Distention Extremities: Non-Tender, No Pedal Edema Skin: Warm, Dry, Intact Neurological: No: Focal Deficit - Patient Data Lab Results Last 24 hrs: Laboratory Results - last 24 hr 06/03/20 06/03/20 06/03/20 Range/Units 19:24 22:38 22:38 WBC 8.61 (4.0-11.0) K/uL RBC 5.24 (4.50-5.90) M/uL Hgb 15.2 (13.0-17.0) g/dL Hct 42.3 (38.0-50.0) % MCV 80.7 (80.0-98.0) fL MCH 29.0 (27.0-32.0) pg MCHC 35.9 (31.0-37.0) g/dL RDW Std Deviation 35.0 (28.0-62.0) fl RDW Coeff of Kyle 12 (11.0-15.0) % Plt Count 201 (150-400) K/uL MPV 9.00 (7.40-12.00) fL Neut % (Auto) 63.0 (48.0-80.0) % Lymph % (Auto) 27.4 (16.0-40.0) % [place] % (Auto) 8.4 (0.0-15.0) % Eos % (Auto) 0.9 (0.0-7.0) % Baso % (Auto) 0.3 (0.0-1.5) % Neut # (Auto) 5.4 (1.4-5.7) K/uL Lymph # (Auto) 2.4 (0.6-2.4) K/uL [place] # (Auto) 0.7 (0.0-0.8) K/uL Eos # (Auto) 0.1 (0.0-0.7) K/uL Baso # (Auto) 0.0 (0.0-0.1) K/uL Nucleated RBC % 0.0 /100WBC Nucleated RBCs # 0 K/uL Lactate (0.20-2.00) mmol/L Sodium 137 (136-148) mmol/L Potassium 3.6 (3.5-5.1) mmol/L Chloride 100 (98-107) mmol/L Carbon Dioxide 23.9 (21.0-32.0) mmol/L BUN 10 (7.0-18.0) mg/dL Creatinine 1.0 (0.8-1.3) mg/dL Est Cr Clr Drug Dosing 108.89 mL/min Estimated GFR (MDRD) > 60.0 ml/min Glucose 93 (74-106) mg/dL Calcium 9.0 (8.5-10.1) mg/dL Total Bilirubin 0.7 (0.2-1.0) mg/dL AST 17 (15-37) IU/L ALT 21 (14-63) IU/L Alkaline Phosphatase 77 (46-116) U/L Total Protein 8.2 (6.4-8.2) g/dL Albumin 5.0 (3.4-5.0) g/dL Globulin 3.2 (2.6-4.0) g/dL Albumin/Globulin Ratio 1.6 (0.9-1.6) COVID-19 (CARMEN) NEGATIVE (NEGATIVE) 06/03/20 Range/Units 22:38 WBC (4.0-11.0) K/uL RBC (4.50-5.90) M/uL Hgb (13.0-17.0) g/dL Hct (38.0-50.0) % MCV (80.0-98.0) fL MCH (27.0-32.0) pg MCHC (31.0-37.0) g/dL RDW Std Deviation (28.0-62.0) fl RDW Coeff of Kyle (11.0-15.0) % Plt Count (150-400) K/uL MPV (7.40-12.00) fL Neut % (Auto) (48.0-80.0) % Lymph % (Auto) (16.0-40.0) % [place] % (Auto) (0.0-15.0) % Eos % (Auto) (0.0-7.0) % Baso % (Auto) (0.0-1.5) % Neut # (Auto) (1.4-5.7) K/uL Lymph # (Auto) (0.6-2.4) K/uL [place] # (Auto) (0.0-0.8) K/uL Eos # (Auto) (0.0-0.7) K/uL Baso # (Auto) (0.0-0.1) K/uL Nucleated RBC % /100WBC Nucleated RBCs # K/uL Lactate 1.4 (0.20-2.00) mmol/L Sodium (136-148) mmol/L Potassium (3.5-5.1) mmol/L Chloride (98-107) mmol/L Carbon Dioxide (21.0-32.0) mmol/L BUN (7.0-18.0) mg/dL Creatinine (0.8-1.3) mg/dL Est Cr Clr Drug Dosing mL/min Estimated GFR (MDRD) ml/min Glucose (74-106) mg/dL Calcium (8.5-10.1) mg/dL Total Bilirubin (0.2-1.0) mg/dL AST (15-37) IU/L ALT (14-63) IU/L Alkaline Phosphatase (46-116) U/L Total Protein (6.4-8.2) g/dL Albumin (3.4-5.0) g/dL Globulin (2.6-4.0) g/dL Albumin/Globulin Ratio (0.9-1.6) COVID-19 (C[facility]EN) (NEGATIVE) Result Diagrams: 06/03/20 22:38 06/03/20 22:38 Rodolfo Results Last 24 hrs: Microbiology 06/03/20 19:24 Group A Streptococcus Rapid Screen - Final Throat NEGATIVE STREP A SCREEN REFERENCE RANGE: NEGATIVE Sepsis Event Note - Evaluation Sepsis Screening Result: No Definite Risk - Focused Exam Vital Signs: Vital Signs Temp Pulse Resp BP Pulse Ox 06/04/20 00:00 36.6 C 11 L 103/58 L 99 06/03/20 22:50 72 17 104/71 98 06/03/20 20:15 60 17 115/70 99 06/03/20 19:11 36.2 C 67 17 91/61 100 Problem List Initiated/Reviewed/Updated: Yes Orders Last 24hrs: Active Orders 24 hr Category Date Time Status Admission Status [Patient Status] [ADT] Stat ADT 06/03/20 23:24 Active Overnight Pulse Oximetry [RC] Click to Edit Care 06/03/20 23:19 Active RT Aerosol Therapy [RC] ASDIRECTED Care 06/03/20 21:28 Active NPO Now [Nothing per Oral Now Diet] [DIET] Diet 06/04/20 Breakfast Active BMP [BASIC METABOLIC PANEL,BMP] [CHEM] Routine Lab 06/04/20 05:30 Ordered CBC WITH AUTO DIFF [HEME] Routine Lab 06/04/20 05:30 Ordered CULTURE BLOOD [BC] Stat Lab 06/03/20 23:20 Received CULTURE BLOOD [BC] Stat Lab 06/03/20 23:26 Received CULTURE STREP A CONFIRMATION [RM] Stat Lab 06/03/20 19:24 Results MONONUCLEOSIS SCREEN [CHEM] Routine Lab 06/04/20 01:07 Ordered STREP SCRN A RAPID W CULT CONF [RM] Stat Lab 06/03/20 19:24 Results Sodium Chloride 0.9% [Normal Saline] 1,000 ml Med 06/04/20 00:45 Active IV ASDIRECTED Sodium Chloride 0.9% [Saline Flush] Med 06/03/20 22:17 Active 10 ml FLUSH ASDIRECTED PRN Sodium Chloride 0.9% [Saline Flush] Med 06/03/20 22:17 Active 2.5 ml FLUSH ASDIRECTED PRN Blood Culture x2 Reflex Set [OM.PC] Stat Oth 06/03/20 22:18 Ordered Pulse Oximetry Continuous Monitoring [OM.PC] Routine Oth 06/03/20 23:19 Ordered Saline Lock Insert [OM.PC] Stat Oth 06/03/20 22:17 Ordered Medication Orders Sodium Chloride (Normal Saline) 1,000 mls @ 125 mls/hr IV ASDIRECTED [facility] Last Admin: 06/04/20 00:47 Dose: 125 mls/hr Documented by: CRAIG Sodium Chloride (Saline Flush) 10 ml FLUSH ASDIRECTED PRN PRN Reason: Keep Vein Open Sodium Chloride (Saline Flush) 2.5 ml FLUSH ASDIRECTED PRN PRN Reason: Keep Vein Open Assessment/Plan Comment:: 25 yo male admitted for epiglottitis. Will place in ICU for closer monitoring of airway. Will treat with Rocephin and Vancomycin.
[2020-06-04 06:42] LABS: BLOOD UREA NITROGEN,BUN 12 mg/dL (7.0-18.0); CARBON DIOXIDE,CO2 23.1 mmol/L (21.0-32.0); CHLORIDE,CL 103 mmol/L (98-107); GLUCOSE RANDOM 135 mg/dL (74-106); POTASSIUM,K 4.1 mmol/L (3.5-5.1); SODIUM,NA 137 mmol/L (136-148)
[2020-06-04] MEDS ORDERED: Sodium Chloride 0.9% 500 ML IV ONE (07:03)
[2020-06-04] MEDS: Pantoprazole 40 MG in Sodium Chloride 0.9% 10 ML IV SCH ×2 (07:32→08:02)
--- NOTE | 2020-06-04 09:28 | PCM.PN ---
- General Info Date of Service: 06/04/20 Subjective Update: Patient continues to complain of sore throat this morning and pain when swallowing. Denies SOB at rest, fevers, chills, nausea or vomiting. - Patient Data Vitals - Most Recent: Last Vital Signs Temp 36.6 C 06/04/20 07:52 Pulse 72 06/03/20 22:50 Resp 96 H 06/04/20 09:00 BP 105/53 L 06/04/20 09:00 Pulse Ox 13 L 06/04/20 09:00 Weight - Most Recent: 67.449 kg I&O - Last 24 Hours: Intake & Output 06/03/20 06/04/20 06/04/20 22:59 06:59 14:59 Intake Total 550 510 Output Total 0 Balance 550 510 Lab Results Last 24 Hours: Laboratory Results - last 24 hr 06/03/20 06/03/20 06/03/20 Range/Units 19:24 22:38 22:38 WBC 8.61 (4.0-11.0) K/uL RBC 5.24 (4.50-5.90) M/uL Hgb 15.2 (13.0-17.0) g/dL Hct 42.3 (38.0-50.0) % MCV 80.7 (80.0-98.0) fL MCH 29.0 (27.0-32.0) pg MCHC 35.9 (31.0-37.0) g/dL RDW Std Deviation 35.0 (28.0-62.0) fl RDW Coeff of Kyle 12 (11.0-15.0) % Plt Count 201 (150-400) K/uL MPV 9.00 (7.40-12.00) fL Neut % (Auto) 63.0 (48.0-80.0) % Lymph % (Auto) 27.4 (16.0-40.0) % [place] % (Auto) 8.4 (0.0-15.0) % Eos % (Auto) 0.9 (0.0-7.0) % Baso % (Auto) 0.3 (0.0-1.5) % Neut # (Auto) 5.4 (1.4-5.7) K/uL Lymph # (Auto) 2.4 (0.6-2.4) K/uL [place] # (Auto) 0.7 (0.0-0.8) K/uL Eos # (Auto) 0.1 (0.0-0.7) K/uL Baso # (Auto) 0.0 (0.0-0.1) K/uL Nucleated RBC % 0.0 /100WBC Nucleated RBCs # 0 K/uL Lactate (0.20-2.00) mmol/L Sodium 137 (136-148) mmol/L Potassium 3.6 (3.5-5.1) mmol/L Chloride 100 (98-107) mmol/L Carbon Dioxide 23.9 (21.0-32.0) mmol/L BUN 10 (7.0-18.0) mg/dL Creatinine 1.0 (0.8-1.3) mg/dL Est Cr Clr Drug Dosing 108.89 mL/min Estimated GFR (MDRD) > 60.0 ml/min Glucose 93 (74-106) mg/dL Calcium 9.0 (8.5-10.1) mg/dL Total Bilirubin 0.7 (0.2-1.0) mg/dL AST 17 (15-37) IU/L ALT 21 (14-63) IU/L Alkaline Phosphatase 77 (46-116) U/L Total Protein 8.2 (6.4-8.2) g/dL Albumin 5.0 (3.4-5.0) g/dL Globulin 3.2 (2.6-4.0) g/dL Albumin/Globulin Ratio 1.6 (0.9-1.6) COVID-19 (CARMEN) NEGATIVE (NEGATIVE) Monoscreen (NEG) 06/03/20 06/03/20 06/04/20 Range/Units 22:38 22:38 05:46 WBC 4.71 (4.0-11.0) K/uL RBC 4.58 (4.50-5.90) M/uL Hgb 13.2 (13.0-17.0) g/dL Hct 37.1 L (38.0-50.0) % MCV 81.0 (80.0-98.0) fL MCH 28.8 (27.0-32.0) pg MCHC 35.6 (31.0-37.0) g/dL RDW Std Deviation 35.0 (28.0-62.0) fl RDW Coeff of Kyle 12 (11.0-15.0) % Plt Count 204 (150-400) K/uL MPV 9.10 (7.40-12.00) fL Neut % (Auto) 84.3 H (48.0-80.0) % Lymph % (Auto) 15.3 L (16.0-40.0) % [place] % (Auto) 0.4 (0.0-15.0) % Eos % (Auto) 0.0 (0.0-7.0) % Baso % (Auto) 0.0 (0.0-1.5) % Neut # (Auto) 4.0 (1.4-5.7) K/uL Lymph # (Auto) 0.7 (0.6-2.4) K/uL [place] # (Auto) 0.0 (0.0-0.8) K/uL Eos # (Auto) 0.0 (0.0-0.7) K/uL Baso # (Auto) 0.0 (0.0-0.1) K/uL Nucleated RBC % 0.0 /100WBC Nucleated RBCs # 0 K/uL Lactate 1.4 (0.20-2.00) mmol/L Sodium (136-148) mmol/L Potassium (3.5-5.1) mmol/L Chloride (98-107) mmol/L Carbon Dioxide (21.0-32.0) mmol/L BUN (7.0-18.0) mg/dL Creatinine (0.8-1.3) mg/dL Est Cr Clr Drug Dosing mL/min Estimated GFR (MDRD) ml/min Glucose (74-106) mg/dL Calcium (8.5-10.1) mg/dL Total Bilirubin (0.2-1.0) mg/dL AST (15-37) IU/L ALT (14-63) IU/L Alkaline Phosphatase (46-116) U/L Total Protein (6.4-8.2) g/dL Albumin (3.4-5.0) g/dL Globulin (2.6-4.0) g/dL Albumin/Globulin Ratio (0.9-1.6) COVID-19 (CARMEN) (NEGATIVE) Monoscreen NEGATIVE (NEG) 06/04/20 Range/Units 05:46 WBC (4.0-11.0) K/uL RBC (4.50-5.90) M/uL Hgb (13.0-17.0) g/dL Hct (38.0-50.0) % MCV (80.0-98.0) fL MCH (27.0-32.0) pg MCHC (31.0-37.0) g/dL RDW Std Deviation (28.0-62.0) fl RDW Coeff of [place] (11.0-15.0) % Plt Count (150-400) K/uL MPV (7.40-12.00) fL Neut % (Auto) (48.0-80.0) % Lymph % (Auto) (16.0-40.0) % [place] % (Auto) (0.0-15.0) % Eos % (Auto) (0.0-7.0) % Baso % (Auto) (0.0-1.5) % Neut # (Auto) (1.4-5.7) K/uL Lymph # (Auto) (0.6-2.4) K/uL [place] # (Auto) (0.0-0.8) K/uL Eos # (Auto) (0.0-0.7) K/uL Baso # (Auto) (0.0-0.1) K/uL Nucleated RBC % /100WBC Nucleated RBCs # K/uL Lactate (0.20-2.00) mmol/L Sodium 137 (136-148) mmol/L Potassium 4.1 (3.5-5.1) mmol/L Chloride 103 (98-107) mmol/L Carbon Dioxide 23.1 (21.0-32.0) mmol/L BUN 12 (7.0-18.0) mg/dL Creatinine 0.9 (0.8-1.3) mg/dL Est Cr Clr Drug Dosing 120.74 mL/min Estimated GFR (MDRD) > 60.0 ml/min Glucose 135 H (74-106) mg/dL Calcium 8.4 L (8.5-10.1) mg/dL Total Bilirubin (0.2-1.0) mg/dL AST (15-37) IU/L ALT (14-63) IU/L Alkaline Phosphatase (46-116) U/L Total Protein (6.4-8.2) g/dL Albumin (3.4-5.0) g/dL Globulin (2.6-4.0) g/dL Albumin/Globulin Ratio (0.9-1.6) COVID-19 ([facility]EN) (NEGATIVE) Monoscreen (NEG) Rodolfo Results Last 24 Hours: Microbiology 06/03/20 19:24 Group A Streptococcus Rapid Screen - Final Throat NEGATIVE STREP A SCREEN REFERENCE RANGE: NEGATIVE Med Orders - Current: Current Medications Sodium Chloride (Normal Saline) 1,000 mls @ 125 mls/hr IV ASDIRECTED [facility] Last Admin: 06/04/20 08:54 Dose: 125 mls/hr Documented by: Ceftriaxone Sodium/Dextrose 1 (gm/ Premix) 50 mls @ 100 mls/hr IV Q24H [facility]IL Vancomycin HCl 1 gm/ Sodium (Chloride) 250 mls @ 166 mls/hr IV Q8H [facility] Last Admin: 06/04/20 01:34 Dose: 166 mls/hr Documented by: Pantoprazole Sodium 40 mg/ (Sodium Chloride) 10 mls @ 300 mls/hr IV DAILY [facility] Last Admin: 06/04/20 08:02 Dose: Not Given Documented by: Sodium Chloride (Saline Flush) 10 ml FLUSH ASDIRECTED PRN PRN Reason: Keep Vein Open Sodium Chloride (Saline Flush) 2.5 ml FLUSH ASDIRECTED PRN PRN Reason: Keep Vein Open Vancomycin HCl (Pharmacy To Dose - Vancomycin) 1 dose .XX ASDIRECTED [facility] Discontinued Medications Albuterol/Ipratropium (Duoneb 3.0-0.5 Mg/3 Ml) 3 ml NEB ONETIME ONE Stop: 06/03/20 21:29 Last Admin: 06/03/20 21:45 Dose: 3 ml Documented by: Ceftriaxone Sodium/Dextrose 1 (gm/ Premix) 50 mls @ 100 mls/hr IV ONETIME ONE Stop: 06/03/20 22:54 Last Admin: 06/03/20 22:46 Dose: 100 mls/hr Documented by: Sodium Chloride (Normal Saline) 500 mls @ 998.89 mls/hr IV STAT ONE Stop: 06/04/20 07:33 Last Admin: 06/04/20 07:32 Dose: 998.89 mls/hr Documented by: Methylprednisolone Sodium Succinate (Solu-Medrol) 125 mg IM ONETIME ONE Stop: 06/03/20 21:28 Last Admin: 06/03/20 21:43 Dose: 125 mg Documented by: - Exam General: Alert, Oriented, Cooperative, No Acute Distress HEENT: Other (pharyngeal erythema) Lungs: Clear to Auscultation, Normal Respiratory Effort Cardiovascular: Regular Rate, Regular Rhythm GI/Abdominal Exam: Normal Bowel Sounds, Soft, Non-Tender, No Distention Extremities: Normal Inspection, No Pedal Edema Sepsis Event Note - Evaluation Sepsis Screening Result: No Definite Risk - Focused Exam Vital Signs: Vital Signs Temp Pulse Resp BP BP Pulse Ox Pulse Ox 06/04/20 09:00 96 H 105/53 L 13 L 06/04/20 08:27 12 108/51 L 97 06/04/20 07:52 36.6 C 12 100/50 L 97 06/04/20 07:00 17 95/44 L 97 06/04/20 06:00 18 105/46 L 94 L 06/04/20 05:00 17 98/45 L 96 06/04/20 04:00 36.2 C 57 H 90/33 L 96 06/04/20 03:00 17 113/44 L 97 06/04/20 02:00 17 98/45 L 97 06/04/20 01:18 97 06/04/20 01:00 17 95/56 L 97 06/04/20 00:00 36.6 C 11 L 103/58 L 99 06/03/20 22:50 72 17 104/71 98 - Problem List Review Problem List Initiated/Reviewed/Updated: Yes - My Orders Last 24 Hours: My Active Orders 06/04/20 09:00 Pantoprazole [ProTONIX IV] 40 mg Sodium Chloride 0.9% [Normal Saline] 10 ml IV DAILY - Plan Plan:: Assessment and Plan: 1. Epiglottitis: - Patient admitted to ICU for close monitoring of airway. Reports breathing is s lightly improved overnight. Continue IV ceftriaxone and vancomycin. Patient NPO and on IV NS 125 cc/hr. - COVID19 test negative. Rapid strep test negative. CXR negative. Neck soft tissue x-ray showed subglottic narrowing and thickening of base of epiglottis suspicious for epiglottitis. 2. DVT prophylaxis: SCD's.
[2020-06-04] MEDS ORDERED: Albuterol/Ipratropium 3.0-0.5 MG/3 ML Neb Soln NEB ONE (15:11)
[2020-06-04] MEDS ORDERED: Ondansetron 4 MG/2 ML SDV IVPUSH PRN (15:36)
[2020-06-04] MEDS ORDERED: Ketorolac 15 MG/ML SDV IVPUSH ONE (19:42)
[2020-06-04] MEDS ORDERED: Iopamidol 755 Mg/ML 100 ML Bottle IVPUSH ONE (21:22)
--- NOTE | 2020-06-04 22:07 | CT ---
INDICATION: Painful swallowing. Concern for epiglottitis. TECHNIQUE: CT images were obtained through the neck following intravenous contrast. COMPARISON: None. FINDINGS: The nasopharynx, oropharynx, hypopharynx, and larynx are widely patent and without enhancing lesions. The epiglottis is normal in thickness. No retropharyngeal edema. Multiple bilateral palatine tonsilliths. No enhancing lesions in the oral cavity or floor of mouth. The parotid and submandibular glands are symmetric in size and without focal lesions or calcifications. The thyroid gland is normal size and demonstrates homogeneous enhancement. No pathologically enlarged lymph nodes. Limited images through the brain are without intracranial mass effect. Small retention cysts or polyps in the maxillary sinuses. The mastoid air cells are clear. The cervical spine is without significant spondylosis or spondylolisthesis. The visualized lungs are clear. IMPRESSION: 1. The airway is widely patent. Specifically, the epiglottis is normal in thickness. 2. No mass or pathologically enlarged lymph nodes. Please note that all CT scans at this facility use dose modulation, iterative reconstruction, and/or weight-based dosing when appropriate to reduce radiation dose to as low as reasonably achievable. Dictated by Kamron Romero MD @ Jun 04 2020 9:57PM Signed by Dr. Kamron Romero @ Jun 04 2020 10:05PM
[2020-06-04] MEDS ORDERED: LORazepam 2 MG/ML SDV IVPUSH PRN (22:26)
[2020-06-04] MEDS ORDERED: cefTRIAXone 1 GM in Premix Bag 1 BAG IV SCH (23:00)
[2020-06-05 06:39] LABS: BLOOD UREA NITROGEN,BUN 16 mg/dL (7.0-18.0); CARBON DIOXIDE,CO2 28.9 mmol/L (21.0-32.0); CHLORIDE,CL 107 mmol/L (98-107); GLUCOSE RANDOM 133 mg/dL (74-106); POTASSIUM,K 3.6 mmol/L (3.5-5.1); SODIUM,NA 141 mmol/L (136-148)
--- NOTE | 2020-06-05 07:14 | PCM.DCSUM1 ---
<Porfirio Lynn M - Last Filed: 06/05/20 14:00> Discharge Summary - Hospital Course Free Text/Narrative:: 25-year-old male admitted for epiglottitis. He has a PMH of asthma, GERD, tobacco use and vaping. On admission, CXR negative, COVID19 test negative, rapist strep negative, neck soft tissue x-ray showed thickening of base of epiglottis. Patient started on IV vancomycin and Rocephin and admitted to ICU for closer monitoring of airway. Blood cultures negative. CT soft tissue neck was unremarkable. Patient did have several bouts of anxiety during his hospital stay which would cause him to feel short of breath which resolved after given Ativan. Patient discharged in stable condition and able to tolerate PO. He was given scripts for PO cefdinir and ativan prn. Advised to follow-up with PCP on discharge. - Discharge Data Discharge Date: 06/05/20 Discharge Disposition: Home, Self-Care 01 Condition: Stable - Referral to Home Health Primary Care Physician: PCP None - Patient Instructions Diet: Usual Diet as Tolerated Activity: As Tolerated Notify Provider of: Fever, Increased Pain, Swelling and Redness, Drainage, Nausea and/or Vomiting - Discharge Plan *PRESCRIPTION DRUG MONITORING PROGRAM REVIEWED*: Not Applicable *COPY OF PRESCRIPTION DRUG MONITORING REPORT IN PATIENT HILARIO: Not Applicable Prescriptions/Med Rec: LORazepam [Ativan] 1 mg PO DAILY PRN 5 Days #5 tab PRN Reason: Anxiety Cefdinir 300 mg PO BID 7 Days #14 capsule Home Medications: Home Meds Cefdinir 300 mg PO BID 7 Days #14 capsule 06/05/20 [Rx] LORazepam [Ativan] 1 mg PO DAILY PRN 5 Days #5 tab 06/05/20 [Rx] Oxygen Therapy Mode: Room Air Patient Handouts: Cefdinir capsules, Cough, Adult, [id number], Lorazepam tab lets, Sore Throat, [id number] Referrals: Wolfgang Smith MD [Ordering Only Provider] - 06/14/20 12:30 pm (Please arrive to the clinic 15 minutes before the scheduled appointment) - Discharge Summary/Plan Comment DC Time >30 min.: No - Patient Data Vitals - Most Recent: Last Vital Signs Temp 36.8 C 06/05/20 04:00 Pulse 70 06/05/20 00:00 Resp 19 06/05/20 07:00 BP 103/58 L 06/05/20 07:00 Pulse Ox 96 06/05/20 07:00 Weight - Most Recent: 68.124 kg I&O - Last 24 hours: Intake & Output 06/04/20 06/05/20 06/05/20 22:59 06:59 14:59 Intake Total 400 2380 Output Total 800 1250 Balance -400 1130 Lab Results - Last 24 hrs: Laboratory Results - last 24 hr 06/05/20 06/05/20 Range/Units 05:10 05:10 WBC 9.66 (4.0-11.0) K/uL RBC 3.91 L (4.50-5.90) M/uL Hgb 11.4 L (13.0-17.0) g/dL Hct 31.8 L (38.0-50.0) % MCV 81.3 (80.0-98.0) fL MCH 29.2 (27.0-32.0) pg MCHC 35.8 (31.0-37.0) g/dL RDW Std Deviation 33.7 (28.0-62.0) fl RDW Coeff of Kyle 12 (11.0-15.0) % Plt Count 194 (150-400) K/uL MPV 9.30 (7.40-12.00) fL Neut % (Auto) 64.3 (48.0-80.0) % Lymph % (Auto) 21.5 (16.0-40.0) % [place] % (Auto) 13.4 (0.0-15.0) % Eos % (Auto) 0.6 (0.0-7.0) % Baso % (Auto) 0.2 (0.0-1.5) % Neut # (Auto) 6.2 H (1.4-5.7) K/uL Lymph # (Auto) 2.1 (0.6-2.4) K/uL [place] # (Auto) 1.3 H (0.0-0.8) K/uL Eos # (Auto) 0.1 (0.0-0.7) K/uL Baso # (Auto) 0.0 (0.0-0.1) K/uL Sodium 141 (136-148) mmol/L Potassium 3.6 (3.5-5.1) mmol/L Chloride 107 (98-107) mmol/L Carbon Dioxide 28.9 (21.0-32.0) mmol/L BUN 16 (7.0-18.0) mg/dL Creatinine 1.0 (0.8-1.3) mg/dL Est Cr Clr Drug Dosing 109.76 mL/min Estimated GFR (MDRD) > 60.0 ml/min Glucose 133 H (74-106) mg/dL Calcium 7.6 L (8.5-10.1) mg/dL Total Bilirubin 0.3 (0.2-1.0) mg/dL AST 13 L (15-37) IU/L ALT 15 (14-63) IU/L Alkaline Phosphatase 52 (46-116) U/L Total Protein 5.6 L (6.4-8.2) g/dL Albumin 3.3 L (3.4-5.0) g/dL Globulin 2.3 L (2.6-4.0) g/dL Albumin/Globulin Ratio 1.4 (0.9-1.6) FAHEEM Results - Last 24 hrs: Microbiology 06/03/20 23:26 Aerobic Blood Culture - Preliminary Blood - Venous - Lab Draw NO GROWTH AFTER 1 DAY Anaerobic Blood Culture - Preliminary NO GROWTH AFTER 1 DAY 06/03/20 23:20 Aerobic Blood Culture - Preliminary Blood - Venous NO GROWTH AFTER 1 DAY Anaerobic Blood Culture - Preliminary NO GROWTH AFTER 1 DAY Med Orders - Current: Current Medications Sodium Chloride (Normal Saline) 1,000 mls @ 125 mls/hr IV ASDIRECTED [facility] Last Admin: 06/04/20 21:56 Dose: 125 mls/hr Documented by: Ceftriaxone Sodium/Dextrose 1 (gm/ Premix) 50 mls @ 100 mls/hr IV Q24H [facility] Last Admin: 06/04/20 22:33 Dose: 100 mls/hr Documented by: Vancomycin HCl 1 gm/ Sodium (Chloride) 250 mls @ 166 mls/hr IV Q8H [facility] Last Admin: 06/05/20 02:22 Dose: 166 mls/hr Documented by: Pantoprazole Sodium 40 mg/ (Sodium Chloride) 10 mls @ 300 mls/hr IV DAILY [facility] Last Admin: 06/04/20 08:02 Dose: Not Given Documented by: Lorazepam (Ativan) 0.5 mg IVPUSH Q4H PRN PRN Reason: Anxiety Last Admin: 06/04/20 22:33 Dose: 0.5 mg Documented by: Ondansetron HCl (Zofran) 4 mg IVPUSH Q4H PRN PRN Reason: Nausea Last Admin: 06/04/20 16:45 Dose: 4 mg Documented by: Sodium Chloride (Saline Flush) 10 ml FLUSH ASDIRECTED PRN PRN Reason: Keep Vein Open Sodium Chloride (Saline Flush) 2.5 ml FLUSH ASDIRECTED PRN PRN Reason: Keep Vein Open Vancomycin HCl (Pharmacy To Dose - Vancomycin) 1 dose .XX ASDIRECTED [facility] Discontinued Medications Albuterol/Ipratropium (Duoneb 3.0-0.5 Mg/3 Ml) 3 ml NEB ONETIME ONE Stop: 06/03/20 21:29 Last Admin: 06/03/20 21:45 Dose: 3 ml Documented by: Albuterol/Ipratropium (Duoneb 3.0-0.5 Mg/3 Ml) 3 ml NEB ONETIME ONE Stop: 06/04/20 15:12 Last Admin: 06/04/20 15:41 Dose: 3 ml Documented by: Ceftriaxone Sodium/Dextrose 1 (gm/ Premix) 50 mls @ 100 mls/hr IV ONETIME ONE Stop: 06/03/20 22:54 Last Admin: 06/03/20 22:46 Dose: 100 mls/hr Documented by: Sodium Chloride (Normal Saline) 500 mls @ 998.89 mls/hr IV STAT ONE Stop: 06/04/20 07:33 Last Admin: 06/04/20 07:32 Dose: 998.89 mls/hr Documented by: Iopamidol (Isovue-370 (76%)) 80 ml IVPUSH ONETIME ONE Stop: 06/04/20 21:23 Last Admin: 06/04/20 21:23 Dose: 80 ml Documented by: Ketorolac Tromethamine (Toradol) 15 mg IVPUSH ONETIME ONE Stop: 06/04/20 19:43 Last Admin: 06/04/20 20:14 Dose: 15 mg Documented by: Methylprednisolone Sodium Succinate (Solu-Medrol) 125 mg IM ONETIME ONE Stop: 06/03/20 21:28 Last Admin: 06/03/20 21:43 Dose: 125 mg Documented by: <Solomon Ulrich - Last Filed: 06/06/20 11:24> Discharge Summary - Hospital Course Free Text/Narrative:: Patient left before i could see him, 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 - Referral to Home Health Primary Care Physician: PCP None - Patient Data Vitals - Most Recent: Last Vital Signs Temp 36.8 C 06/05/20 04:00 Pulse 70 06/05/20 00:00 Resp 19 06/05/20 07:00 BP 103/58 L 06/05/20 07:00 Pulse Ox 96 06/05/20 07:00 FAHEEM Results - Last 24 hrs: Microbiology 06/03/20 23:26 Aerobic Blood Culture - Preliminary Blood - Venous - Lab Draw NO GROWTH AFTER 2 DAYS Anaerobic Blood Culture - Preliminary NO GROWTH AFTER 2 DAYS 06/03/20 23:20 Aerobic Blood Culture - Preliminary Blood - Venous NO GROWTH AFTER 2 DAYS Anaerobic Blood Culture - Preliminary NO GROWTH AFTER 2 DAYS 06/03/20 19:24 Quick Strep Confirmation Culture - Final Throat NO GROUP A STREP ISOLATED REFERENCE RANGE: NEGATIVE Group A Streptococcus Rapid Screen - Final NEGATIVE STREP A SCREEN REFERENCE RANGE: NEGATIVE Med Orders - Current: Current Medications Discontinued Medications Albuterol/Ipratropium (Duoneb 3.0-0.5 Mg/3 Ml) 3 ml NEB ONETIME ONE Stop: 06/03/20 21:29 Last Admin: 06/03/20 21:45 Dose: 3 ml Documented by: Albuterol/Ipratropium (Duoneb 3.0-0.5 Mg/3 Ml) 3 ml NEB ONETIME ONE Stop: 06/04/20 15:12 Last Admin: 06/04/20 15:41 Dose: 3 ml Documented by: Ceftriaxone Sodium/Dextrose 1 (gm/ Premix) 50 mls @ 100 mls/hr IV ONETIME ONE Stop: 06/03/20 22:54 Last Admin: 06/03/20 22:46 Dose: 100 mls/hr Documented by: Sodium Chloride (Normal Saline) 1,000 mls @ 125 mls/hr IV ASDIRECTED [facility] Last Admin: 06/04/20 21:56 Dose: 125 mls/hr Documented by: Ceftriaxone Sodium/Dextrose 1 (gm/ Premix) 50 mls @ 100 mls/hr IV Q24H [facility] Last Admin: 06/04/20 22:33 Dose: 100 mls/hr Documented by: Vancomycin HCl 1 gm/ Sodium (Chloride) 250 mls @ 166 mls/hr IV Q8H [facility] Last Admin: 06/05/20 02:22 Dose: 166 mls/hr Documented by: Sodium Chloride (Normal Saline) 500 mls @ 998.89 mls/hr IV STAT ONE Stop: 06/04/20 07:33 Last Admin: 06/04/20 07:32 Dose: 998.89 mls/hr Documented by: Pantoprazole Sodium 40 mg/ (Sodium Chloride) 10 mls @ 300 mls/hr IV DAILY [facility] Last Admin: 06/04/20 08:02 Dose: Not Given Documented by: Iopamidol (Isovue-370 (76%)) 80 ml IVPUSH ONETIME ONE Stop: 06/04/20 21:23 Last Admin: 06/04/20 21:23 Dose: 80 ml Documented by: Ketorolac Tromethamine (Toradol) 15 mg IVPUSH ONETIME ONE Stop: 06/04/20 19:43 Last Admin: 06/04/20 20:14 Dose: 15 mg Documented by: Lorazepam (Ativan) 0.5 mg IVPUSH Q4H PRN PRN Reason: Anxiety Last Admin: 06/04/20 22:33 Dose: 0.5 mg Documented by: Methylprednisolone Sodium Succinate (Solu-Medrol) 125 mg IM ONETIME ONE Stop: 06/03/20 21:28 Last Admin: 06/03/20 21:43 Dose: 125 mg Documented by: Ondansetron HCl (Zofran) 4 mg IVPUSH Q4H PRN PRN Reason: Nausea Last Admin: 06/04/20 16:45 Dose: 4 mg Documented by: Sodium Chloride (Saline Flush) 10 ml FLUSH ASDIRECTED PRN PRN Reason: Keep Vein Open Sodium Chloride (Saline Flush) 2.5 ml FLUSH ASDIRECTED PRN PRN Reason: Keep Vein Open Vancomycin HCl (Pharmacy To Dose - Vancomycin) 1 dose .XX ASDIRECTED [facility]
== END 2020-06-05 07:30 | disposition home or self-care (01) ==
LOC: MW.ED 18:07 → MW.ICU 23:24
PROVIDERS: ADMIT Internal Medicine; ATTEND Internal Medicine
DX: J05.10 Acute epiglottitis without obstruction (principal); J45.909 Unspecified asthma, uncomplicated; K21.9 Gastro-esophageal reflux disease without esophagitis; F41.9 Anxiety disorder, unspecified; F32.9 Major depressive disorder, single episode, unspecified; Z20.828 Contact with and (suspected) exposure to other viral communicable diseases; Z91.011 Allergy to milk products; Z79.899 Other long term (current) drug therapy; Z87.891 Personal history of nicotine dependence
CPT/HCPCS: 36415; 70360; 70491; 71046; 80048; 80053; 83605; 85025; 86308; 87040; 87081; 87635; 87880; 94640; 96361; 96365; 96366; 96372; 96375; 96376; 99284; C9113; G0378; J0696; J1885; J2060; J2405; J2930; J3370; J7030; J7040; J7050; Q9967; 99283; J7620-GY; U0002

== ENCOUNTER 2020-06-16 12:23 | Emergency (ER) | payer MEDICAID, OTHER ==
[2020-06-16] MEDS ORDERED: Sodium Chloride 0.9% 2.5 ML Syringe FLUSH PRN (12:31)
[2020-06-16] MEDS ORDERED: Sodium Chloride 0.9% 10 ML Syringe FLUSH PRN (12:31)
[2020-06-16] MEDS ORDERED: Ondansetron 4 MG Tab.DIS PO ONE (12:31)
[2020-06-16] MEDS ORDERED: Aspirin 81 MG Tab.Chew PO ONE (12:31)
[2020-06-16] MEDS ORDERED: Acetaminophen 500 MG Tab PO ONE (12:31)
--- NOTE | 2020-06-16 12:36 | EDM.PDOC ---
ED HPI GENERAL MEDICAL PROBLEM - General Chief Complaint: Chest Pain Stated Complaint: CHEST PAIN Time Seen by Provider: 06/16/20 12:25 Source of Information: Reports: Patient - History of Present Illness INITIAL COMMENTS - FREE TEXT/NARRATIVE: History of present illness: 25-year-old male presenting with left-sided chest pain since 10:00 this morning. Developed at rest at about 30 minutes after he took a Zoloft tablet. He just started taking that medication yesterday. He does report some mild headache and nausea associated. Pain radiates to the left arm and shoulder. Pressure/ache sensation. Very mild shortness of breath associated without cough or fever. No prior episode of pain like this. Pain does not radiate to to jaw, neck or back. No known cardiac history. No known family cardiac history except he thinks maybe his grandmother at a late age. He did take a dose of Ativan prior to coming in Review of systems: As per history of present illness and below otherwise all systems reviewed and negative. Past medical history: As per history of present illness and as reviewed below otherwise noncontributory. Anxiety Surgical history: As per history of present illness and as reviewed below otherwise noncontributory. Denies Social history: No reported history of drug or alcohol abuse. Does smoke daily, cannot recall exact number at this time Family history: As per history of present illness and as reviewed below otherwise noncontributory. Physical exam: GEN: no acute distress, well appearing HEENT: Atraumatic, normocephalic, mucous membranes moist, Neck: supple. Lungs: No respiratory distress. Heart: RRR Abdomen: Soft, nondistended, nontender. Back: nontender Extremities: Atraumatic. Neurovascularly intact. Neuro: Awake, alert, oriented. Neuro Exam nonfocal. Skin: warm, dry, no lesions Psych: Appears anxious Diagnostics: Labs, EKG, chest x-ray Therapeutics: Aspirin, Tylenol, Zofran MDM: Impression: Plan: Definitive disposition and diagnosis as appropriate pending reevaluation and review of above. left chest Pain Score (Numeric/FACES): 8 - Related Data Allergies Allergy/AdvReac Type Severity Reaction Status Date / Time lactose Allergy Stomach Verified 06/16/20 12:28 Upset Home Meds: Home Meds LORazepam [Ativan] 0.5 mg PO TID PRN 06/16/20 [History] Sertraline [Zoloft] 50 mg PO DAILY 06/16/20 [History] Past Medical History - Past Health History Medical/Surgical History: Denies Medical/Surgical History HEENT History: Reports: None Cardiovascular History: Reports: None Respiratory History: Reports: Asthma, Other (See Below) Other Respiratory History: states he rarely uses his inhaler Gastrointestinal History: Reports: Gastritis, GERD Genitourinary History: Reports: None Musculoskeletal History: Reports: Fracture, Osteoarthritis, Other (See Below) Other Musculoskeletal History: hx fx hand Neurological History: Reports: Migraines Psychiatric History: Reports: Anxiety, Depression Endocrine/Metabolic History: Reports: None Insulin Pump Model and Multi Purpose Machine Operator: None Hematologic History: Reports: None Immunologic History: Reports: None Oncologic (Cancer) History: Reports: None Dermatologic History: Reports: None - Infectious Disease History Infectious Disease History: Reports: None - Past Surgical History Head Surgeries/Procedures: Reports: None HEENT Surgical History: Reports: Oral Surgery Other HEENT Surgeries/Procedures: wisdom teeth extraction Cardiovascular Surgical History: Reports: None Respiratory Surgical History: Reports: None GI Surgical History: Reports: Appendectomy Male Surgical History: Reports: None Endocrine Surgical History: Reports: None Neurological Surgical History: Reports: None Musculoskeletal Surgical History: Reports: None Oncologic Surgical History: Reports: None Dermatological Surgical History: Reports: None Social & Family History - Family History Family Medical History: Noncontributory - Tobacco Use Smoking Status *Q: Current Every Day Smoker Years of Tobacco use: 5 Packs/Tins Daily: 0.5 - Caffeine Use Caffeine Use: Reports: None - Recreational Drug Use Recreational Drug Use: No ED ROS GENERAL - Review of Systems Review Of Systems: See Below (See HPI) ED EXAM, GENERAL - Physical Exam Exam: See Below (See HPI) EKG INTERPRETATION EKG Interpretation Comments: EKG #1 performed at 12:26 PM, sinus rhythm, rate 57, QTc 395, no STEMI, normal early repolarization ST changes. Interpreted by me. EKG #2, performed at 12:55 PM, appears unchanged. Sinus rhythm, rate 57, QTc 382. No acute ischemia, no STEMI. Interpreted by me. Course - Vital Signs Text/Narrative:: Chest pain, left-sided, radiates to the arm but nowhere else. Mild shortness of breath associated. Patient 25-year-old with low risk for coronary artery disease. Low risk for pulmonary embolism/DVT, however will check d-dimer as patient having mild shortness of breath associated with this pain. EKG shows no acute ischemia, ST changes, likely early repolarization seen. Will repeat EKG. EKG unchanged, no ST elevation. Patient was apparently seen here 2 weeks ago for similar symptoms, initially refused care, then agreed to care, then developed some throat tightness and had an x-ray which was questioning epiglottitis, however had a CT neck done the following day and showed no epiglottitis although he did complete antibiotics, cefdinir that was prescribed by the hospital. No throat tightness at this time. Labs unremarkable including d-dimer and troponin x2, except for mild creatinine elevation. Chest x-ray negative. No acute findings to account for the patient's pain although he did feel significantly improved after dose of Ativan here. Apparently he had only taken one quarter of a milligram of Ativan prior to coming in and he has severe anxiety. Patient would like to be discharged. Will refer for cardiology in case of continuing chest pain. Last Recorded V/S: Last Vital Signs Temp 97.8 F 06/16/20 12:29 Pulse 71 06/16/20 14:00 Resp 16 06/16/20 12:48 BP 99/67 06/16/20 14:00 Pulse Ox 99 06/16/20 12:48 - Orders/Labs/Meds Orders: Active Orders 24 hr Category Date Time Status EKG 12 Lead [EKG Documentation Completion] [RC] STAT Care 06/16/20 12:36 Active EKG Documentation Completion [RC] STAT Care 06/16/20 12:32 Active Sodium Chloride 0.9% [Saline Flush] Med 06/16/20 12:31 Active 10 ml FLUSH ASDIRECTED PRN Sodium Chloride 0.9% [Saline Flush] Med 06/16/20 12:31 Active 2.5 ml FLUSH ASDIRECTED PRN Saline Lock Insert [OM.PC] Stat Oth 06/16/20 12:31 Ordered Medication Orders Sodium Chloride (Saline Flush) 10 ml FLUSH ASDIRECTED PRN PRN Reason: Keep Vein Open Sodium Chloride (Saline Flush) 2.5 ml FLUSH ASDIRECTED PRN PRN Reason: Keep Vein Open Labs: Laboratory Tests 06/16/20 06/16/20 06/16/20 Range/Units 12:46 12:46 12:46 WBC 5.12 (4.0-11.0) K/uL RBC 4.76 (4.50-5.90) M/uL Hgb 13.7 (13.0-17.0) g/dL Hct 38.7 (38.0-50.0) % MCV 81.3 (80.0-98.0) fL MCH 28.8 (27.0-32.0) pg MCHC 35.4 (31.0-37.0) g/dL RDW Std Deviation 36.1 (28.0-62.0) fl RDW Coeff of Kyle 12 (11.0-15.0) % Plt Count 205 (150-400) K/uL MPV 8.70 (7.40-12.00) fL Neut % (Auto) 62.6 (48.0-80.0) % Lymph % (Auto) 27.0 (16.0-40.0) % Love % (Auto) 8.4 (0.0-15.0) % Eos % (Auto) 1.4 (0.0-7.0) % Baso % (Auto) 0.6 (0.0-1.5) % Neut # (Auto) 3.2 (1.4-5.7) K/uL Lymph # (Auto) 1.4 (0.6-2.4) K/uL Love # (Auto) 0.4 (0.0-0.8) K/uL Eos # (Auto) 0.1 (0.0-0.7) K/uL Baso # (Auto) 0.0 (0.0-0.1) K/uL Nucleated RBC % 0.0 /100WBC Nucleated RBCs # 0 K/uL D-Dimer, Quantitative < 0.19 (0.0-0.50) mg/L FEU Sodium 139 (136-148) mmol/L Potassium 3.8 (3.5-5.1) mmol/L Chloride 105 (98-107) mmol/L Carbon Dioxide 25.3 (21.0-32.0) mmol/L BUN 13 (7.0-18.0) mg/dL Creatinine 0.8 (0.8-1.3) mg/dL Est Cr Clr Drug Dosing 137.02 mL/min Estimated GFR (MDRD) > 60.0 ml/min Glucose 109 H (74-106) mg/dL Calcium 8.6 (8.5-10.1) mg/dL Total Bilirubin 0.6 (0.2-1.0) mg/dL AST 18 (15-37) IU/L ALT 20 (14-63) IU/L Alkaline Phosphatase 58 (46-116) U/L Troponin I < 0.050 (0.000-0.056) ng/mL Total Protein 6.8 (6.4-8.2) g/dL Albumin 4.2 (3.4-5.0) g/dL Globulin 2.6 (2.6-4.0) g/dL Albumin/Globulin Ratio 1.6 (0.9-1.6) Urine Opiates Screen (NEGATIVE) Ur Oxycodone Screen (NEGATIVE) Urine Methadone Screen (NEGATIVE) Ur Barbiturates Screen (NEGATIVE) Ur Phencyclidine Scrn (NEGATIVE) Ur Amphetamine Screen (NEGATIVE) U Methamphetamines Scrn (NEGATIVE) U Benzodiazepines Scrn (NEGATIVE) U Cocaine Metab Screen (NEGATIVE) U Marijuana (THC) Screen (NEGATIVE) 06/16/20 06/16/20 Range/Units 13:15 14:24 WBC (4.0-11.0) K/uL RBC (4.50-5.90) M/uL Hgb (13.0-17.0) g/dL Hct (38.0-50.0) % MCV (80.0-98.0) fL MCH (27.0-32.0) pg MCHC (31.0-37.0) g/dL RDW Std Deviation (28.0-62.0) fl RDW Coeff of Kyle (11.0-15.0) % Plt Count (150-400) K/uL MPV (7.40-12.00) fL Neut % (Auto) (48.0-80.0) % Lymph % (Auto) (16.0-40.0) % Love % (Auto) (0.0-15.0) % Eos % (Auto) (0.0-7.0) % Baso % (Auto) (0.0-1.5) % Neut # (Auto) (1.4-5.7) K/uL Lymph # (Auto) (0.6-2.4) K/uL Love # (Auto) (0.0-0.8) K/uL Eos # (Auto) (0.0-0.7) K/uL Baso # (Auto) (0.0-0.1) K/uL Nucleated RBC % /100WBC Nucleated RBCs # K/uL D-Dimer, Quantitative (0.0-0.50) mg/L FEU Sodium (136-148) mmol/L Potassium (3.5-5.1) mmol/L Chloride (98-107) mmol/L Carbon Dioxide (21.0-32.0) mmol/L BUN (7.0-18.0) mg/dL Creatinine (0.8-1.3) mg/dL Est Cr Clr Drug Dosing mL/min Estimated GFR (MDRD) ml/min Glucose (74-106) mg/dL Calcium (8.5-10.1) mg/dL Total Bilirubin (0.2-1.0) mg/dL AST (15-37) IU/L ALT (14-63) IU/L Alkaline Phosphatase (46-116) U/L Troponin I < 0.050 (0.000-0.056) ng/mL Total Protein (6.4-8.2) g/dL Albumin (3.4-5.0) g/dL Globulin (2.6-4.0) g/dL Albumin/Globulin Ratio (0.9-1.6) Urine Opiates Screen NEGATIVE (NEGATIVE) Ur Oxycodone Screen NEGATIVE (NEGATIVE) Urine Methadone Screen NEGATIVE (NEGATIVE) Ur Barbiturates Screen NEGATIVE (NEGATIVE) Ur Phencyclidine Scrn NEGATIVE (NEGATIVE) Ur Amphetamine Screen NEGATIVE (NEGATIVE) U Methamphetamines Scrn NEGATIVE (NEGATIVE) U Benzodiazepines Scrn NEGATIVE (NEGATIVE) U Cocaine Metab Screen NEGATIVE (NEGATIVE) U Marijuana (THC) Screen NEGATIVE (NEGATIVE) Meds: Medications Generic Name Dose Route Start Last Admin Trade Name Freq PRN Reason Stop Dose Admin Sodium Chloride 10 ml 06/16/20 12:31 Saline Flush FLUSH ASDIRECTED PRN Keep Vein Open Sodium Chloride 2.5 ml 06/16/20 12:31 Saline Flush FLUSH ASDIRECTED PRN Keep Vein Open Discontinued Medications Generic Name Dose Route Start Last Admin Trade Name Freq PRN Reason Stop Dose Admin Acetaminophen 1,000 mg 06/16/20 12:31 06/16/20 12:46 Tylenol Extra Strength PO 06/16/20 12:32 1,000 mg ONETIME ONE Administration Aspirin 324 mg 06/16/20 12:31 06/16/20 12:46 Aspirin PO 06/16/20 12:32 324 mg ONETIME ONE Administration Lorazepam 1 mg 06/16/20 14:30 06/16/20 15:19 Ativan PO 06/16/20 14:31 1 mg ONETIME ONE Administration Ondansetron HCl 4 mg 06/16/20 12:31 06/16/20 12:46 Zofran Odt PO 06/16/20 12:32 4 mg ONETIME ONE Administration - Re-Assessments/Exams Free Text/Narrative Re-Assessment/Exam: 06/16/20 14:09 The patient appears to be extremely anxious right now. I reevaluated him. He does report his pain is still ongoing after the aspirin and Tylenol. He suspects that this is related to the new prescription that he just started 2 days ago and states that he feels like it is putting him in a very anxious/negative place where he is really focusing on any symptom and having chest pain development due to his anxiety. I discussed possibility of GI cocktail with the patient, however he declines this medication as he reports he has had this in the past and he does not like the taste of it. Discussed recommendation with patient for repeat (2-hour) troponin and he agrees with this plan. 06/16/20 15:57 On reassessment, the patient is resting comfortably. He no longer appears anxious. He reports his pain is resolved. He is in no acute distress. Discussed all results and plan of care with the patient. As the patient has had recurring episodes of chest discomfort without clear etiology, I will refer the patient to cardiology and primary care for outpatient follow-up. Departure - Departure Time of Disposition: 15:57 Disposition: Home, Self-Care 01 Clinical Impression: Chest pain Instructions: Panic Attack, [id number], Nonspecific Chest Pain, Adult, [id number], Living With Anxiety, Pain Without a Known Cause Referrals: PCP,None [Primary Care Provider] - Brooklyn Urias MD [Physician] - 2 Days Forms: ED Department Discharge Additional Instructions: Make sure you get plenty of rest. Try to do some thoughts work and meditation in regards to your anxiety. If you continue to have chest pain, please follow- up with the insurance claims processor listed below. If you develop severe chest pain or difficulty breathing, please return to the emergency department. The following information is given to patients seen in the emergency department who are being discharged to home. This information is to outline your options for follow-up care. We provide all patients seen in our emergency department with a follow-up referral. The need for follow-up, as well as the timing and circumstances, are variable depending upon the specifics of your emergency department visit. If you don't have a primary care physician on staff, we will provide you with a referral. We always advise you to contact your personal physician following an emergency department visit to inform them of the circumstance of the visit and for follow-up with them and/or the need for any referrals to a consulting specialist. The emergency department will also refer you to a specialist when appropriate. This referral assures that you have the opportunity for follow-up care with a specialist. All of these measure are taken in an effort to provide you with optimal care, which includes your follow-up. Under all circumstances we always encourage you to contact your private physician who remains a resource for coordinating your care. When calling for follow-up care, please make the office aware that this follow-up is from your recent emergency room visit. If for any reason you are refused follow-up, please contact the [facility] Emergency Department at and asked to speak to the emergency department charge nurse. [facility] - Primary Care [address] [place] [id number] [address] [address] Sepsis Event Note (ED) - Evaluation Sepsis Screening Result: No Definite Risk - Focused Exam Vital Signs: Vital Signs Temp Pulse Resp BP Pulse Ox 06/16/20 14:00 71 99/67 06/16/20 12:48 69 16 96/69 99 06/16/20 12:29 97.8 F 60 18 112/77 97 - My Orders Last 24 Hours: My Active Orders 06/16/20 12:31 Sodium Chloride 0.9% [Saline Flush] 10 ml FLUSH ASDIRECTED PRN Sodium Chloride 0.9% [Saline Flush] 2.5 ml FLUSH ASDIRECTED PRN Saline Lock Insert [OM.PC] Stat 06/16/20 12:32 EKG Documentation Completion [RC] STAT 06/16/20 12:36 EKG 12 Lead [EKG Documentation Completion] [RC] STAT - Assessment/Plan Last 24 Hours: My Active Orders 06/16/20 12:31 Sodium Chloride 0.9% [Saline Flush] 10 ml FLUSH ASDIRECTED PRN Sodium Chloride 0.9% [Saline Flush] 2.5 ml FLUSH ASDIRECTED PRN Saline Lock Insert [OM.PC] Stat 06/16/20 12:32 EKG Documentation Completion [RC] STAT 06/16/20 12:36 EKG 12 Lead [EKG Documentation Completion] [RC] STAT
[2020-06-16 13:20] LABS: BLOOD UREA NITROGEN,BUN 13 mg/dL (7.0-18.0); CARBON DIOXIDE,CO2 25.3 mmol/L (21.0-32.0); CHLORIDE,CL 105 mmol/L (98-107); GLUCOSE RANDOM 109 mg/dL (74-106); POTASSIUM,K 3.8 mmol/L (3.5-5.1); SODIUM,NA 139 mmol/L (136-148)
--- NOTE | 2020-06-16 13:38 | CR ---
Chest: 2 views of the chest were obtained. Comparison: Prior chest x-ray of 06/03/20. Heart size and mediastinum are normal. Lungs are clear with no acute parenchymal change. Bony structures appear within normal limits. Impression: 1. Nothing acute is seen on 2 view chest x-ray. Diagnostic code #1 This report was dictated in MDT
[2020-06-16] MEDS ORDERED: LORazepam 1 MG Tab PO ONE (14:30)
== END 2020-06-16 16:03 | disposition home or self-care (01) ==
LOC: MW.ED 12:23
DX: R07.9 Chest pain, unspecified (principal); F17.210 Nicotine dependence, cigarettes, uncomplicated; J45.909 Unspecified asthma, uncomplicated; F41.9 Anxiety disorder, unspecified; F32.9 Major depressive disorder, single episode, unspecified; Z79.899 Other long term (current) drug therapy
CPT/HCPCS: 36415; 71046; 80053; 80305; 84484; 85025; 85379; 93005; 99285; A9270; 99283

== ENCOUNTER 2020-07-15 20:42 | Emergency (ER) | payer MEDICAID, OTHER ==
[2020-07-15] MEDS ORDERED: LORazepam 0.5 MG Tab PO ONE (21:49)
--- NOTE | 2020-07-15 21:54 | EDM.PDOC ---
ED HPI GENERAL MEDICAL PROBLEM - General Chief Complaint: General Stated Complaint: PANIC ATTACK Time Seen by Provider: 07/15/20 20:51 Source of Information: Reports: Patient History Limitations: Reports: No Limitations - History of Present Illness INITIAL COMMENTS - FREE TEXT/NARRATIVE: HISTORY AND PHYSICAL: History of present illness: Patient is a 25-year-old male who presents to the ED today with concern of increase in anxiety, h/o anxiety and panic attacks. Patient states that his girlfriend had just broken up with him and he feels like his anxiety has worsened today. Patient states that he is on Paroxitine and has Ativan as needed for anxiety. Patient states that he ran out of his Ativan prescription by his primary care provider, Dr. Stewart. Patient states that he went on the portal system this morning to message Dr. Smith for a refill of his Ativan but was told that Dr. Stewart was out of the office. Denies any other symptoms or concerns. Patient denies fever, chills, chest pain, shortness of breath, or cough. Denies headache, neck stiff ness, change in vision, syncope, or near syncope. Denies nausea, vomiting, abdominal pain, diarrhea, constipation, or dysuria. Has not noted any blood in urine or stool. Patient has been eating and drinking appropriately. Review of systems: As per history of present illness and below otherwise all systems reviewed and negative. Past medical history: As per history of present illness and as reviewed below otherwise noncontributory. Surgical history: As per history of present illness and as reviewed below otherwise noncontributory. Social history: See social history for further information Family history: As per history of present illness and as reviewed below otherwise noncontributory. Physical exam: General: Patient is alert, oriented, and in no acute distress. Patient sitting comfortably on exam table but anxious appearing. HEENT: Atraumatic, normocephalic, pupils equal and reactive bilaterally, negative for conjunctival pallor or scleral icterus, mucous membranes moist, TMs normal bilaterally, throat clear, neck supple, nontender, trachea midline. No drooling or trismus noted. No meningeal signs. No hot potato voice noted. Lungs: Clear to auscultation, breath sounds equal bilaterally, chest nontender. Heart: S1S2, regular rate and rhythm without overt murmur Abdomen: Soft, nondistended, nontender. Negative for masses or hepatosplenomegaly. Negative for costovertebral tenderness. Pelvis: Stable nontender. Genitourinary: Deferred. Rectal: Deferred. Skin: Intact, warm, dry. No lesions or rashes noted. Extremities: Atraumatic, negative for cords or calf pain. Neurovascular unremarkable. Neuro: Awake, alert, oriented. Cranial nerves II through XII unremarkable. Cerebellum unremarkable. Motor and sensory unremarkable throughout. Exam nonfocal. Notes: Discussed with patient that I would not be prescribing him Ativan at home but we will give him 1 dose here. Discussed with patient that he needs to call his primary care provider tomorrow morning in order to have this medication refilled. Voices understanding and is agreeable to plan of care. Denies any further questions or concerns at this time. Diagnostics: None Therapeutics: 0.5 mg of Ativan p.o. Prescription: None Impression: Anxiety Plan: 1. Continue your at home anxiety medication as prescribed to you by your primary care provider. Call your primary care provider tomorrow morning to establish an appointment time and for follow up. Return to the ED as needed and as discussed. Definitive disposition and diagnosis as appropriate pending reevaluation and review of above. - Related Data Allergies Allergy/AdvReac Type Severity Reaction Status Date / Time lactose Allergy Stomach Verified 06/16/20 12:28 Upset Home Meds: Home Meds LORazepam [Ativan] 0.5 mg PO TID PRN 06/16/20 [History] Sertraline [Zoloft] 50 mg PO DAILY 06/16/20 [History] Past Medical History - Past Health History Medical/Surgical History: Denies Medical/Surgical History HEENT History: Reports: None Cardiovascular History: Reports: None Respiratory History: Reports: Asthma, Other (See Below) Other Respiratory History: states he rarely uses his inhaler Gastrointestinal History: Reports: Gastritis, GERD Genitourinary History: Reports: None Musculoskeletal History: Reports: Fracture, Osteoarthritis, Other (See Below) Other Musculoskeletal History: hx fx hand Neurological History: Reports: Migraines Psychiatric History: Reports: Anxiety, Depression Endocrine/Metabolic History: Reports: None Insulin Pump Model and Call Center Director: None Hematologic History: Reports: None Immunologic History: Reports: None Oncologic (Cancer) History: Reports: None Dermatologic History: Reports: None - Infectious Disease History Infectious Disease History: Reports: None - Past Surgical History Head Surgeries/Procedures: Reports: None HEENT Surgical History: Reports: Oral Surgery Other HEENT Surgeries/Procedures: wisdom teeth extraction Cardiovascular Surgical History: Reports: None Respiratory Surgical History: Reports: None GI Surgical History: Reports: Appendectomy Male Surgical History: Reports: None Endocrine Surgical History: Reports: None Neurological Surgical History: Reports: None Musculoskeletal Surgical History: Reports: None Oncologic Surgical History: Reports: None Dermatological Surgical History: Reports: None Social & Family History - Family History Family Medical History: Noncontributory - Tobacco Use Smoking Status *Q: Never Smoker Second Hand Smoke Exposure: No - Caffeine Use Caffeine Use: Reports: None - Recreational Drug Use Recreational Drug Use: No ED ROS GENERAL - Review of Systems Review Of Systems: Comprehensive ROS is negative, except as noted in HPI. ED EXAM, GENERAL - Physical Exam Exam: See Below (see dictation) Course - Vital Signs Last Recorded V/S: Last Vital Signs Temp 98.5 F 07/15/20 20:53 Pulse 80 07/15/20 20:53 Resp 20 07/15/20 20:53 BP 140/68 07/15/20 20:53 Pulse Ox 98 07/15/20 20:53 - Orders/Labs/Meds Orders: Active Orders 24 hr Category Date Time Status LORazepam [Ativan] Med 07/15/20 21:49 Once 0.5 mg PO ONETIME ONE Departure - Departure Time of Disposition: 21:50 Disposition: Home, Self-Care 01 Clinical Impression: Anxiety - Discharge Information Referrals: Wolfgang Smith MD [Primary Care Provider] - Additional Instructions: The following information is given to patients seen in the emergency department who are being discharged to home. This information is to outline your options for follow-up care. We provide all patients seen in our emergency department with a follow-up referral. The need for follow-up, as well as the timing and circumstances, are variable depending upon the specifics of your emergency department visit. If you don't have a primary care physician on staff, we will provide you with a referral. We always advise you to contact your personal physician following an emergency department visit to inform them of the circumstance of the visit and for follow-up with them and/or the need for any referrals to a consulting specialist. The emergency department will also refer you to a specialist when appropriate. This referral assures that you have the opportunity for follow-up care with a specialist. All of these measure are taken in an effort to provide you with optimal care, which includes your follow-up. Under all circumstances we always encourage you to contact your private physician who remains a resource for coordinating your care. When calling for follow-up care, please make the office aware that this follow-up is from your recent emergency room visit. If for any reason you are refused follow-up, please contact the [facility] Emergency Department at and asked to speak to the emergency department charge nurse. [facility] [address] [place] [address] [facility] [address] [place] [id number] 1. Continue your at home anxiety medication as prescribed to you by your primary care provider. Call your primary care provider tomorrow morning to establish an appointment time and for follow up. Return to the ED as needed and as discussed. Sepsis Event Note (ED) - Evaluation Sepsis Screening Result: No Definite Risk - Focused Exam Vital Signs: Vital Signs Temp Pulse Resp BP Pulse Ox 07/15/20 20:53 98.5 F 80 20 140/68 98 - My Orders Last 24 Hours: My Active Orders 07/15/20 21:49 LORazepam [Ativan] 0.5 mg PO ONETIME ONE - Assessment/Plan Last 24 Hours: My Active Orders 07/15/20 21:49 LORazepam [Ativan] 0.5 mg PO ONETIME ONE
== END 2020-07-15 22:15 | disposition home or self-care (01) ==
LOC: MW.ED 20:42
DX: F41.9 Anxiety disorder, unspecified (principal); J45.909 Unspecified asthma, uncomplicated; F32.9 Major depressive disorder, single episode, unspecified; Z91.011 Allergy to milk products; Z79.899 Other long term (current) drug therapy
CPT/HCPCS: 99283; A9270

== ENCOUNTER 2020-07-17 20:10 | Emergency (ER) | payer MEDICAID ==
--- NOTE | 2020-07-17 20:14 | EDM.PDOC ---
ED HPI GENERAL MEDICAL PROBLEM - General Stated Complaint: PANIC ATTACK Time Seen by Provider: 07/17/20 20:11 Source of Information: Reports: Patient History Limitations: Reports: No Limitations - History of Present Illness INITIAL COMMENTS - FREE TEXT/NARRATIVE: HISTORY AND PHYSICAL: History of present illness: Patient is a 25-year-old male who presents to the emergency room with complaints of a panic attack. He has a longstanding history of severe anxiety and has been seeing Dr. Smith [facility]. Most recently he ran out of his Ativan and attempted to get a hold of Dr Smith, he was out of the office. He came to our emergency room on 07/15/2020 for anxiety and was given a one-time dose of Ativan. He states shortly after he was able to get a hold of Sarah, changed his Zoloft to Paxil. He has an appointment on Sunday to have his Ativan refilled. He states he is going through a break-up and recently lost his job and is under "a lot of stress". He complains of feeling anxious and chest tightness which is typical with his panic attacks. Patient denies any fever, chills, headache, change in vision, syncope or near syncope. Denies any chest pain, back pain, shortness of breath or cough. Denies any abdominal pain, nausea, vomiting, diarrhea, constipation or dysuria. Has not noted any blood in urine or stool. Patient has been eating and drinking appropriately. Review of systems: As per history of present illness and below otherwise all systems reviewed and negative. Past medical history: As per history of present illness and as reviewed below otherwise noncontributory. Surgical history: As per history of present illness and as reviewed below otherwise noncontributory. Social history: See social history for further information Family history: As per history of present illness and as reviewed below otherwise noncontributory. Physical exam: General: Well developed and well nourished 25 year old male. Alert and orientated x 3. Anxious but nontoxic in appearance and in no acute distress. Vital signs are stable and have been reviewed by me. Nursing notes were reviewed. HEENT: Atraumatic, normocephalic, pupils equal and reactive bilaterally, negative for conjunctival pallor or scleral icterus, mucous membranes moist, TMs normal bilaterally, throat clear, neck supple, nontender, trachea midline. No drooling or trismus noted. No meningeal signs. No hot potato voice noted. Lungs: Clear to auscultation, breath sounds equal bilaterally, chest nontender. Normal work of breathing, no accessory muscles used. Heart: S1S2, regular rate and rhythm without overt murmur Abdomen: Soft, nondistended, nontender. Skin: Intact, warm, dry. No lesions or rashes noted. Hematologic: No petechiae or purpra. Mucosa appropriate color and normal nail bed color and refill. Extremities: Atraumatic, moves all extremities per self without difficulty or deficits, negative for cords or calf pain. Neurovascular unremarkable. Neuro: Awake, alert, oriented. Cranial nerves II through XII unremarkable. Cerebellum unremarkable. Motor and sensory unremarkable throughout. Exam nonfocal. Psychiatric: Mood and affect are appropriate. Normal thought process. Answering questions appropriately. Notes: Patient declines wanting any diagnostics, and he states this is typical of his panic attacks. I will give him a one-time dose while here of Ativan and 4 tablets until he is able to be seen by Dr. Smith on Sunday. Reassessment at the time of disposition demonstrates that the patient is in no acute distress. The patient is stable for discharge, counseling was provided and we discussed in great detail signs and symptoms that would prompt them to return to the Emergency Department. Medication, follow up and supportive care measures were reviewed and discussed. Voices understanding and is agreeable to plan of care. Denies any further questions or concerns at this time. Diagnostics: None Therapeutics: Ativan Prescription: Ativan (#4) Impression: Panic Attack Plan: 1. You were given a prescription for Atarax for your anxiety. Further medication refills MUST be done by Dr Smith. 2. Take the medication as directed. 3. We encourage you to follow up with Dr Smith for re-evaluation and further care/management. If your symptoms should worsen, new symptoms develop or any of the signs and symptoms we discussed should arise please return to the emergency room or call 911 (if needed). Definitive disposition and diagnosis as appropriate pending reevaluation and review of above. - Related Data Allergies Allergy/AdvReac Type Severity Reaction Status Date / Time gluten Allergy Stomach Verified 07/15/20 22:18 Upset lactose Allergy Stomach Verified 06/16/20 12:28 Upset Home Meds: Home Meds LORazepam [Ativan] 0.5 mg PO TID PRN 06/16/20 [History] Sertraline [Zoloft] 50 mg PO DAILY 06/16/20 [History] LORazepam [Ativan] 0.5 mg PO Q8H PRN #4 tab 07/17/20 [Rx] Past Medical History - Past Health History Medical/Surgical History: Denies Medical/Surgical History HEENT History: Reports: None Cardiovascular History: Reports: None Respiratory History: Reports: Asthma, Other (See Below) Other Respiratory History: states he rarely uses his inhaler Gastrointestinal History: Reports: Gastritis, GERD Genitourinary History: Reports: None Musculoskeletal History: Reports: Fracture, Osteoarthritis, Other (See Below) Other Musculoskeletal History: hx fx hand Neurological History: Reports: Migraines Psychiatric History: Reports: Anxiety, Depression Endocrine/Metabolic History: Reports: None Insulin Pump Model and Vat Operator: None Hematologic History: Reports: None Immunologic History: Reports: None Oncologic (Cancer) History: Reports: None Dermatologic History: Reports: None - Infectious Disease History Infectious Disease History: Reports: None - Past Surgical History Head Surgeries/Procedures: Reports: None HEENT Surgical History: Reports: Oral Surgery Other HEENT Surgeries/Procedures: wisdom teeth extraction Cardiovascular Surgical History: Reports: None Respiratory Surgical History: Reports: None GI Surgical History: Reports: Appendectomy Male Surgical History: Reports: None Endocrine Surgical History: Reports: None Neurological Surgical History: Reports: None Musculoskeletal Surgical History: Reports: None Oncologic Surgical History: Reports: None Dermatological Surgical History: Reports: None Social & Family History - Family History Family Medical History: Noncontributory - Caffeine Use Caffeine Use: Reports: None ED ROS GENERAL - Review of Systems Review Of Systems: Comprehensive ROS is negative, except as noted in HPI. ED EXAM, GENERAL - Physical Exam Exam: See Below (See dictation) Course - Orders/Labs/Meds Meds: Medications Discontinued Medications Generic Name Dose Route Start Last Admin Trade Name Freq PRN Reason Stop Dose Admin Lorazepam 1 mg 07/17/20 20:24 Ativan PO 07/17/20 20:25 ONETIME ONE Departure - Departure Time of Disposition: 20:30 Disposition: Home, Self-Care 01 Clinical Impression: Panic attack - Discharge Information Prescriptions: LORazepam [Ativan] 0.5 mg PO Q8H PRN #4 tab PRN Reason: Anxiety Instructions: Panic Attack, [id number] Additional Instructions: The following information is given to patients seen in the emergency department who are being discharged to home. This information is to outline your options for follow-up care. We provide all patients seen in our emergency department with a follow-up referral. The need for follow-up, as well as the timing and circumstances, are variable depending upon the specifics of your emergency department visit. If you don't have a primary care physician on staff, we will provide you with a referral. We always advise you to contact your personal physician following an emergency department visit to inform them of the circumstance of the visit and for follow-up with them and/or the need for any referrals to a consulting specialist. The emergency department will also refer you to a specialist when appropriate. This referral assures that you have the opportunity for follow-up care with a specialist. All of these measure are taken in an effort to provide you with optimal care, which includes your follow-up. Under all circumstances we always encourage you to contact your private physician who remains a resource for coordinating your care. When calling for follow-up care, please make the office aware that this follow-up is from your recent emergency room visit. If for any reason you are refused follow-up, please contact the [facility] Emergency Department at and asked to speak to the emergency department charge nurse. [facility] [address] [place] [address] [id number] [address] Thank you for choosing the [facility] emergency department in [place] for your medical needs today. It was a pleasure caring for you. Today you were seen in the emergency department for medication refill and anxiet y/panic attack. 1. You were given a prescription for Atarax for your anxiety. Further medication refills MUST be done by Dr Smith. 2. Take the medication as directed. 3. We encourage you to follow up with Dr Smith for re-evaluation and further care/management. If your symptoms should worsen, new symptoms develop or any of the signs and symptoms we discussed should arise please return to the emergency room or call 911 (if needed).
[2020-07-17] MEDS ORDERED: LORazepam 1 MG Tab PO ONE ×2 (20:24→20:40)
== END 2020-07-17 21:05 | disposition home or self-care (01) ==
LOC: MW.ED 20:10
DX: F41.0 Panic disorder [episodic paroxysmal anxiety] (principal); J45.909 Unspecified asthma, uncomplicated; F32.9 Major depressive disorder, single episode, unspecified; Z91.018 Allergy to other foods; Z91.011 Allergy to milk products; Z79.899 Other long term (current) drug therapy
CPT/HCPCS: 99283; A9270

== ENCOUNTER 2020-07-31 23:36 | Emergency (ER) | payer MEDICAID ==
[2020-08-01 00:30] LABS: BLOOD UREA NITROGEN,BUN 11 mg/dL (7.0-18.0); CARBON DIOXIDE,CO2 24.6 mmol/L (21.0-32.0); CHLORIDE,CL 107 mmol/L (98-107); GLUCOSE RANDOM 69 mg/dL (74-106); POTASSIUM,K 3.6 mmol/L (3.5-5.1); SODIUM,NA 143 mmol/L (136-148)
--- NOTE | 2020-08-01 00:33 | EDM.PDOC ---
<Rey Hardingophe - Last Filed: 08/01/20 06:49> ED HPI GENERAL MEDICAL PROBLEM - General Chief Complaint: Drug or Alcohol Abuse Stated Complaint: BROUGHT IN BY EMS Time Seen by Provider: 07/31/20 23:37 - History of Present Illness INITIAL COMMENTS - FREE TEXT/NARRATIVE: 25-year-old male with a history of recurrent presentations for anxiety and chest pain to the emergency department prior history of alcohol abuse but sober for 5 years presents with alcohol intoxication. The patient is awake and alert though clinically intoxicated. EMS describes short episodes where his eyes rolled back in his head and he will briefly shake and then immediately return to normal without any postictal state. He did fall from standing but had no severe head trauma that EMS is aware of. Patient is somewhat intoxicated and so further history is limited at this time. Headache Pain Score (Numeric/FACES): 8 - Related Data Allergies Allergy/AdvReac Type Severity Reaction Status Date / Time gluten Allergy Stomach Verified 07/17/20 20:27 Upset lactose Allergy Stomach Verified 07/17/20 20:27 Upset Home Meds: Home Meds LORazepam [Ativan] 0.5 mg PO Q8H PRN #4 tab 07/17/20 [Rx] PARoxetine HCL [Paroxetine HCl] 07/31/20 [History] Past Medical History - Past Health History Medical/Surgical History: Denies Medical/Surgical History HEENT History: Reports: None Cardiovascular History: Reports: None Respiratory History: Reports: Asthma, Other (See Below) Other Respiratory History: states he rarely uses his inhaler Gastrointestinal History: Reports: Gastritis, GERD Genitourinary History: Reports: None Musculoskeletal History: Reports: Fracture, Osteoarthritis, Other (See Below) Other Musculoskeletal History: hx fx hand Neurological History: Reports: Migraines Psychiatric History: Reports: Anxiety, Depression Endocrine/Metabolic History: Reports: None Insulin Pump Model and Duster Tender: None Hematologic History: Reports: None Immunologic History: Reports: None Oncologic (Cancer) History: Reports: None Dermatologic History: Reports: None - Infectious Disease History Infectious Disease History: Reports: None - Past Surgical History Head Surgeries/Procedures: Reports: None HEENT Surgical History: Reports: Oral Surgery Other HEENT Surgeries/Procedures: wisdom teeth extraction Cardiovascular Surgical History: Reports: None Respiratory Surgical History: Reports: None GI Surgical History: Reports: Appendectomy Male Surgical History: Reports: None Endocrine Surgical History: Reports: None Neurological Surgical History: Reports: None Musculoskeletal Surgical History: Reports: None Oncologic Surgical History: Reports: None Dermatological Surgical History: Reports: None Social & Family History - Family History Family Medical History: Noncontributory - Tobacco Use Smoking Status *Q: Current Every Day Smoker Years of Tobacco use: 6 Packs/Tins Daily: 1.5 Used Tobacco, but Quit: No Second Hand Smoke Exposure: No - Caffeine Use Caffeine Use: Reports: Soda - Recreational Drug Use Recreational Drug Use: No ED ROS GENERAL - Review of Systems Review Of Systems: See Below Free Text/Narrative/Comment: General: No fever. Skin: No rash. Eyes: No vision problems. ENT: No sore throat. Neck: No neck stiffness. Respiratory: No shortness of breath. Cardiac: No chest pain. Gastrointestinal: No nausea, vomiting or abdominal pain. Urinary: No dysuria. Musculoskeletal: No myalgias/arthralgias. Neurologic: Positive for headache ED EXAM, GENERAL - Physical Exam Exam: See Below Free Text/Narrative:: General Appearance: No acute distress, appears comfortable Skin: No rash HEENT: Normocephalic/atraumatic, sclera anicteric, mucous membranes moist Neck: Normal range of motion Chest and Lungs: Bilateral breath sounds, clear to auscultation Cardiovascular: Regular rate and rhythm, no murmur Abdomen: Soft, non-tender Back: Normal Musculoskeletal: No edema or tenderness Neurologic: Awake, alert, no obvious deficits, moving all extremities, mildly slurred speech clinically intoxicated Psychiatric: cooperative Departure - Departure Disposition: Home, Self-Care 01 Clinical Impression: Alcoholic intoxication with complication, Anxiety state Acute nonintractable headache Qualifiers: Headache type: unspecified Qualified Code(s): R51.9 - Headache, unspecified - Discharge Information Instructions: Binge-Drinking Information, Adult, Alcohol Intoxication, [id number], General Headache Without Cause, [id number], Living With Anxiety Referrals: [facility] - [facility] Practice [Provider Group] - 1 Week (For follow-up of your symptoms and to discuss alcohol cessation.) Forms: ED Department Discharge Additional Instructions: You were seen in the emergency department for alcohol intoxication, headache, and anxiety. Your blood work is reassuring, the CT scan of your head was normal. You appear to be quite anxious and were given some medication to help you relax. I recommend that you stop drinking alcohol immediately as this can make your anxiety symptoms worse and can be extremely harmful to your health. You can take sian-[id number] Tylenol or Advil as needed for headache. I would like for you to follow-up with a family doctor the next few days for reevaluation to be sure that your headache is improving and to discuss alcohol cessation counseling and further treatment of your anxiety symptoms. Warning signs to come back to the ER include worsening headache or any other new or concerning symptoms or if you feel like you want to harm yourself or others. Please return the emergency department immediately if your symptoms worsen or if you feel worse. Thank you for choosing the [facility] emergency department in [place] for your medical needs today. It was a pleasure caring for you. The following information is given to patients seen in the emergency department who are being discharged. This information is to outline your options for follow-up care. We provide all patients seen in our emergency department with a follow-up referral. The need for follow-up, as well as the timing and circumstances, are variable depending upon the specifics of your emergency department visit. If you don't have a primary care physician on staff, we will provide you with a referral. We always advise you to contact your personal physician following an emergency department visit to inform them of the circumstance of the visit and for follow-up with them and/or the need for any referrals to a consulting specialist. The emergency department will also refer you to a specialist when appropriate. This referral assures that you have the opportunity for follow-up care with a specialist. All of these measure are taken in an effort to provide you with optimal care, which includes your follow-up. Under all circumstances we always encourage you to contact your private physician who remains a resource for coordinating your care. When calling for follow-up care, please make the office aware that this follow-up is from your recent emergency room visit. If for any reason you are refused follow-up, please contact the [facility] at and asked to speak to the emergency department charge nurse. If you do not have a primary care physician that is caring for you, you can contact these clinics below to set up an appointment to establish care: Arturo Maher [facility] - Primary Care [address] [place] [address] [facility] [address] [place] [address] Sepsis Event Note (ED) - Evaluation Sepsis Screening Result: No Definite Risk - Assessment/Plan Assessment:: 25-year-old male presenting with signs of alcohol intoxication and pseudoseizures. Patient has no genuine tonic-clonic motion he has no postictal state I do not believe this represents epileptic seizures. Labs including alcohol level pending. Given the reported fall I did order a CT scan of his brain. However, he had a pseudoseizure in the CT scanner and so the exam could not be completed. This point the patient has no objective signs of head trauma will hold on repeat imaging at this time. Patient will be observed and reassessed when he is sober. The patient repeatedly tries to get out of bed and requires constant redirection. We will see if he will take 10mg of PO zyprexa. The patient has slept well for the remainder of my shift. Pt was signed out to Dr. Michel pending reassessment when awake and sober. <Avni Michel - Last Filed: 08/03/20 07:07> Course - Vital Signs Text/Narrative:: I accepted care of this patient at [address] Harding In brief, this is a 25-year-old male with a past medical history of panic attacks and anxiety who presented with alcohol intoxication. There was some concern for psychogenic non-epileptiform seizure disorders where the patient was making purposeful movements and was responsive to some commands. He reportedly went through a break-up last night and drink alcohol. He reportedly did fall but had a negative head CT overnight. Hemodynamically stable. Labs reassuring, alcohol 114. Normal electrolytes and renal function, normal cell lines. I reviewed the radiology report for the head CT which is negative. We are awaiting sobriety/clinical clearance anticipate he will likely discharge home. 0802: I reevaluated the patient. He is calm and comfortable. He complains of a mild headache. He is able to answer questions appropriately and is alert and oriented to person, place, time, and event. He denies any desire to harm himself or others. I do not believe that he is a risk to himself at this point in time. He states that he drank alcohol last night but denies any illegal drug use. He appears clinically sober and is stable to discharge to self-care. Counseled about return precautions the ED including worsening headache or any other new or concerning symptoms, recommended [id number] Tylenol and Motrin as needed. Primary care follow-up as needed. Last Recorded V/S: Last Vital Signs Temp 36.4 C 07/31/20 23:37 Pulse 65 08/01/20 08:14 Resp 14 08/01/20 06:30 BP 109/51 L 08/01/20 08:14 Pulse Ox 94 L 08/01/20 06:30 - Orders/Labs/Meds Labs: Laboratory Tests 07/31/20 07/31/20 Range/Units 23:45 23:45 WBC 6.05 (4.0-11.0) K/uL RBC 4.72 (4.50-5.90) M/uL Hgb 13.6 (13.0-17.0) g/dL Hct 39.2 (38.0-50.0) % MCV 83.1 (80.0-98.0) fL MCH 28.8 (27.0-32.0) pg MCHC 34.7 (31.0-37.0) g/dL RDW Std Deviation 37.5 (28.0-62.0) fl RDW Coeff of Kyle 12 (11.0-15.0) % Plt Count 179 (150-400) K/uL MPV 8.70 (7.40-12.00) fL Neut % (Auto) 61.3 (48.0-80.0) % Lymph % (Auto) 26.6 (16.0-40.0) % [place] % (Auto) 9.8 (0.0-15.0) % Eos % (Auto) 1.8 (0.0-7.0) % Baso % (Auto) 0.5 (0.0-1.5) % Neut # (Auto) 3.7 (1.4-5.7) K/uL Lymph # (Auto) 1.6 (0.6-2.4) K/uL [place] # (Auto) 0.6 (0.0-0.8) K/uL Eos # (Auto) 0.1 (0.0-0.7) K/uL Baso # (Auto) 0.0 (0.0-0.1) K/uL Nucleated RBC % 0.0 /100WBC Nucleated RBCs # 0 K/uL Sodium 143 (136-148) mmol/L Potassium 3.6 (3.5-5.1) mmol/L Chloride 107 (98-107) mmol/L Carbon Dioxide 24.6 (21.0-32.0) mmol/L BUN 11 (7.0-18.0) mg/dL Creatinine 0.8 (0.8-1.3) mg/dL Est Cr Clr Drug Dosing TNP Estimated GFR (MDRD) > 60.0 ml/min Glucose 69 L (74-106) mg/dL Calcium 8.6 (8.5-10.1) mg/dL Magnesium 2.3 (1.8-2.4) mg/dL Total Bilirubin 0.3 (0.2-1.0) mg/dL AST 23 (15-37) IU/L ALT 28 (14-63) IU/L Alkaline Phosphatase 65 (46-116) U/L Total Protein 6.8 (6.4-8.2) g/dL Albumin 4.2 (3.4-5.0) g/dL Globulin 2.6 (2.6-4.0) g/dL Albumin/Globulin Ratio 1.6 (0.9-1.6) Ethyl Alcohol 114 mg/dL Meds: Medications Discontinued Medications Generic Name Dose Route Start Last Admin Trade Name Chrisq PRN Reason Stop Dose Admin Diazepam Confirm 08/01/20 00:00 08/01/20 06:53 Valium Administered 08/01/20 00:01 Not Given Dose 10 mg .ROUTE .STK-MED ONE Olanzapine 10 mg 08/01/20 00:34 08/01/20 00:45 Zyprexa PO 10/11/20 00:35 10 mg ONETIME ONE Administration Departure - Departure Time of Disposition: 08:03 Condition: Good
[2020-08-01] MEDS ORDERED: OLANZapine 5 MG Tab PO ONE (00:34)
--- NOTE | 2020-08-01 02:23 | CT ---
Indication: Fall, ETOH Technique: Nonenhanced axial CT imaging through the head. Sagittal and coronal reconstructions are provided. Comparison: None Findings: There is no intracranial hemorrhage, edema, or mass effect. There is normal attenuation of the brain parenchyma. The ventricles are normal in size. The basal cisterns are patent. The calvarium is intact. The visualized paranasal sinuses and mastoid air cells are aerated. Impression: No acute intracranial process. Please note that all CT scans at this facility use dose modulation, iterative reconstruction, and/or weight-based dosing when appropriate to reduce radiation dose to as low as reasonably achievable. Dictated by Gloria Sykes MD @ Aug 01 2020 2:19AM Signed by Dr. Gloria Sykes @ Aug 01 2020 2:21AM
== END 2020-08-01 08:14 | disposition home or self-care (01) ==
LOC: MW.ED 23:36
DX: F10.129 Alcohol abuse with intoxication, unspecified (principal); F41.9 Anxiety disorder, unspecified; R51.9 Headache, unspecified; J45.909 Unspecified asthma, uncomplicated; F17.210 Nicotine dependence, cigarettes, uncomplicated; Z91.09 Other allergy status, other than to drugs and biological substances; Z88.8 Allergy status to other drugs, medicaments and biological substances; Z90.49 Acquired absence of other specified parts of digestive tract; Y90.5 Blood alcohol level of 100-119 mg/100 ml
CPT/HCPCS: 36415; 70450; 80053; 80307; 83735; 85025; 99285; A9270; 99283